=== PATIENT | male | born 1965 ===

== ENCOUNTER 2024-01-15 18:41 | Outpatient (BNV) | payer OTHER, SELFPAY | END 2024-01-16 15:54 | PROVIDERS: Admitting Provider Clinical Nurse Specialist Psychiatric/Mental Health, Adult; Visit Provider Internal Medicine Cardiovascular Disease | DX: I45.81 Long QT syndrome (principal) | CPT/HCPCS: 93010 ==

== ENCOUNTER 2024-01-15 18:41 | Inpatient (IN) | payer OTHER, SELFPAY ==
--- NOTE | 2024-01-15 15:38 | P.EN_ITS ---
Documented by User: Erika Gómez APRN 01/15/24 15:42 Event Note Date of Service: 01/15/24 Event Note: [facility]. Admitted 01/11/24 with SI and alcohol withdrawal. Pt reported a few plans for suicide including hanging and using a razor. During his ER time team noticed a decrease in respiratory status, elevated temp-CAT chest indicated a pneumonia, ?aspiration in RLL. Pt did NOT require O2, labs are stable, he is afebrile and has 3 days of Augmentin remaining. He has no current sx of pneumonia, does report L knee pain, negative on xray and is agreeable to admission for treatment. Time Spent With Patient Time: Total time managing care of this patient today ____ minutes. Documented by User: Matt Mcrae MD 01/15/24 17:13 Event Note Date of Service: 01/15/24
--- OUTSIDE RECORDS SUMMARY | 2024-01-15 18:46 | XMS_ITS | Continuity of Care Document ---
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 Refills 11, Maintenance, 12/05/16 12:06:15, Route to Pharmacy Electronically, [id number], [facility]/pharmacy #[id number] Start Date: 12/05/16 Status: Ordered Indocin SR 75 mg oral capsule, extended release 1 capsule = 75 mg, By Mouth, Daily, PRN for gout pain, # 20 capsule, 0 Refills, Maintenance, CR Capsule Start Date: 01/17/12 Status: Ordered Lovaza oral capsule 2 capsule = 2,000 mg, By Mouth, 2 times a day, # 120 capsule, 11 Refills, Maintenance, 12/05/16 12:06:26, Capsule, 2 capsule By Mouth 2 times a day,x30 days Start Date: 12/05/16 Stop Date: 11/30/17 Status: Ordered Vicodin 500 mg-5 mg oral tablet 1 tablet, By Mouth, Every 4 hours, PRN for pain, # 12 tablet, 0 Refills, Maintenance, Tablet Start Date: 12/21/11 Status: Ordered Vitamin D 21001 iu oral capsule 50,000 International_Units, 1, capsule, By Mouth, Every Marco and , to be used before daily dose, # 9 capsule, Refills 0, Tot. Refills 0, Maintenance, 12/05/16 12:07:09, Route to Pharmacy Electronically, [id number],... Start Date: 12/05/16 Status: Ordered Vitamin D3 5000 intl units oral capsule 1 capsule = 5,000 International_Units, By Mouth, Daily, with food, start in 1 month, # 30 capsule, 11 Refills, Maintenance, 12/05/16 12:08:13, Capsule Start Date: 12/05/16 Stop Date: 11/30/17 Status: Ordered Social History Social History Type Response Smoking Status Current every day noemí aparicio entered on: 12/05/16 Sex Patient Care team information Care Team Personnel Name: Idalmis Lennon Position: [facility] AMB Nurse Member Role: Lifetime Consulting Physician Name: Not on Staff, PCP Position: [facility] Physician (General Medicine) Member Role: PCP Care Team Related Persons Name: ALPHONSO HAYNES Address: [place] [address] Name: NICKY VINCENT Address: [place] [address]
[2024-01-15 19:05] VITALS: BP 132/92; PULSE 103; TEMP 36.3
[2024-01-15] MEDS: Acetaminophen 325 MG TABLET 650 MG PO (21:40)
[2024-01-15] MEDS: Thiamine HCL 100 MG TABLET PO (21:41)
[2024-01-15] MEDS: oxyCODONE HCl Immed Release 5 MG TABLET PO (21:42)
[2024-01-15] MEDS: Amoxicillin/Potassium Clav 875 MG TABLET PO (21:42)
[2024-01-15] MEDS: Pyridoxine HCl (Vitamin B6) 50 MG TABLET PO (21:42)
[2024-01-15] MEDS: traZODone HCL 50 MG TABLET PO (23:02)
[2024-01-15] MEDS: LORazepam 1 MG TABLET PO (23:02)
--- NOTE | 2024-01-16 | ECG_ITS ---
Test Reason : qtc check Blood Pressure : / mmHG Vent. Rate : 092 BPM Atrial Rate : 092 BPM P-R Int : 162 ms QRS Dur : 088 ms QT Int : 362 ms P-R-T Axes : 054 047 042 degrees QTc Int : 447 ms Normal sinus rhythm Normal ECG No previous ECGs available Referred By: Erika Gómez Electronically Signed By:JEANNINE REED MD
[2024-01-16 01:48] VITALS: BMI 26.3
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
[2024-01-16] MEDS: Acetaminophen 325 MG TABLET 650 MG PO ×3 (05:07→18:19)
[2024-01-16] MEDS: hydrOXYzine HCL 25 MG TABLET PO ×3 (05:07→18:18)
[2024-01-16] MEDS: oxyCODONE HCl Immed Release 5 MG TABLET PO ×3 (05:09→20:35)
[2024-01-16] MEDS: Pyridoxine HCl (Vitamin B6) 50 MG TABLET PO (08:42)
[2024-01-16] MEDS: Thiamine HCL 100 MG TABLET PO (08:42)
[2024-01-16] MEDS: LORazepam 1 MG TABLET PO ×4 (08:42→23:43)
[2024-01-16] MEDS: Amoxicillin/Potassium Clav 875 MG TABLET PO ×2 (08:42→20:35)
[2024-01-16 08:49] LABS: Estimated Average Glucose 108 mg/dL; Hemoglobin A1c % 5.4 % (<6.0)
[2024-01-16 09:01] LABS: Cholesterol 146 mg/dL (<200); HDL Cholesterol 25 mg/dL (>40); LDL Cholesterol Calculated 97 mg/dL (<100); Magnesium 2.3 mg/dL (1.6-2.6); Triglycerides 122 mg/dL (<150)
[2024-01-16 09:17] LABS: Free T4 (Free Thyroxine) 1.03 ng/dL (0.71-1.85); Thyroid Stimulating Hormone 1.41 uIU/mL (0.32-4.0)
[2024-01-16 09:58] LABS: Folate 8.9 ng/mL (> or = 4.0); Vitamin B12 324 pg/mL (200-900)
--- NOTE | 2024-01-16 10:58 | MHC.RECOVRN ---
Addendum entered by Rosario Nelson RN 01/16/24 11:07: T/W reviewed pt's chart prior to visit and gave pt's nurse Rayo report following visit. Original Note: AUDIT-C Brief Intervention Pt had positive screen for unhealthy alcohol use on admission, subsequently met with t/w to discuss alcohol use and recovery supports/options. Pt does not voice concern regarding alcohol use but is aware that drinking at unhealthy levels is known to increase risk of alcohol related health problems. Pt reports he drinks as much as I can since about the age of 18. Pt expresses how alcohol use has impacted health, including negative impact on mental health. Discussed risk reduction strategies including drinking below the recommended limit. Provided pt with written resources including information on inpatient and outpatient treatment, RAMAKRISHNA, harm reduction, and recovery coaching. Pt plans to not seek any treatment at this time. Pt provided with t/w contact information if questions or concerns arise. Denies other questions or concerns at this time.
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
[2024-01-16 16:10] VITALS: BP 134/75; PULSE 100; RESP 16; TEMP 36.4; O2SAT 99
[2024-01-16] MEDS: Lidocaine 4 % Patch ADH..PATCH 1 PATCH TRANSDERMA (16:21)
[2024-01-16] MEDS: gemfibroziL 600 MG TABLET PO (18:18)
[2024-01-16] MEDS: Indomethacin 25 MG CAPSULE 50 MG PO ×2 (18:18→20:35)
[2024-01-16] MEDS: traZODone HCL 50 MG TABLET PO ×2 (20:34→23:43)
[2024-01-16] MEDS: OLANZapine 5 MG TABLET PO (20:35)
[2024-01-16] MEDS: cloNIDine HCL 0.1 MG TABLET PO (20:35)
[2024-01-16] MEDS: Magnesium Hydrox/Alum Hydrox 30 ML ORAL.SUSP PO (20:36)
[2024-01-17] MEDS: hydrOXYzine HCL 25 MG TABLET PO ×2 (02:11→12:56)
[2024-01-17 08:00] VITALS: BP 118/69; PULSE 79; RESP 18; TEMP 36.8; O2SAT 97
[2024-01-17] MEDS: Indomethacin 25 MG CAPSULE 50 MG PO ×3 (08:27→19:55)
[2024-01-17] MEDS: OLANZapine 5 MG TABLET PO ×2 (08:28→19:54)
[2024-01-17] MEDS: gemfibroziL 600 MG TABLET PO ×2 (08:28→16:53)
[2024-01-17] MEDS: Folic Acid 1 MG TABLET PO (08:28)
[2024-01-17] MEDS: Multivitamin TABLET 1 TAB PO (08:28)
[2024-01-17] MEDS: Thiamine HCL 100 MG TABLET PO (08:28)
[2024-01-17] MEDS: Pyridoxine HCl (Vitamin B6) 50 MG TABLET PO (08:28)
[2024-01-17] MEDS: Cholecalciferol (Vitamin D3) 10 MCG TABLET PO (08:28)
[2024-01-17] MEDS: Escitalopram Oxalate 5 MG TABLET PO (08:28)
[2024-01-17] MEDS: Amoxicillin/Potassium Clav 875 MG TABLET PO ×2 (08:30→19:54)
[2024-01-17] MEDS: Lidocaine 4 % Patch ADH..PATCH 1 PATCH TRANSDERMA (08:33)
[2024-01-17] MEDS: LORazepam 1 MG TABLET PO ×2 (08:39→13:06)
[2024-01-17] MEDS: Nicotine Polacrilex Lozenge 2 MG LOZENGE BUCCAL ×2 (09:20→19:54)
--- NOTE | 2024-01-17 12:44 | HO.PSYCHPN ---
Subjective Subjective Date of Service: 01/17/24 Reason For Visit: Depression, SI, alcohol withdrawal Interim History: Pt seen, although he would not participate, I want to sleep Review with team, plan of care reviewed. Endorses sx of SI without intent, anger at times Declines intervention options. Medication Compliance: Yes Side effects from medications: No Attending Groups: No Review of Systems Acute medical concerns: No Medical Review of Systems: unchanged Review of Systems Review of Systems Yes Unobtainable due to mental status Mental Status Exam Mental Status Exam Patient Appearance: Fatigued and Disheveled Patient Orientation: Person, Place, Time and Situation Level of Consciousness: Alert Patient Behavior: Talkative, Cooperative, Anxious, Fatigued, Distractible, Isolative and Good Eye Contact Mood Description: Withdrawn, Depressed and Apprehensive Affect Description: Flat Patient Cognition Impaired: No Ability to Follow Directions: Good Speech Pattern: Spontaneous Speech Memory Description: Episodic Impaired Hallucinations: Auditory (recent) and Visual (recent) Delusions: Not Present Perceptual Disturbances: Depersonalization Thought Process: Rumination and Slowed Thinking Thought Content: positive for [place], positive for Circum[place], positive for Perseveration and positive for Suicidal Ideation Depressive Symptoms: Diff. Making Decisions, Feelings of Worthlessness, Hopelessness, Isolating-Friends/Family, Unhappiness, Increased Fatigue, Thoughts of /Suicide, Loss of Energy and Difficulty Concentrating Judgement: Fair Diagnostics Vital Signs (24Hr): Vital Signs - 24 hr 01/16/24 16:10 01/17/24 08:00 Temperature 97.5 F 98.2 F Pulse Rate 100 79 Respiratory Rate 16 18 Blood Pressure 134/75 118/69 Pulse Oximetry 99 97 Oxygen Delivery Method Room Air Room Air BMI result Body Mass Index 26.3 Labs Labs: Laboratory Results - last 48 hr 01/16/24 08:30 Estimat Average Glucose 108 Hemoglobin A1c % 5.4 Magnesium 2.3 Triglycerides 122 Cholesterol 146 LDL Cholesterol, Calc 97 HDL Cholesterol 25 L Vitamin B12 324 Folate 8.9 TSH 1.41 Free T4 1.03 Medications Medications Current Medications Acetaminophen (Acetaminophen 325 Mg Tablet) 650 mg PO Q6H PRN PRN Reason: Headache/Pain Mild Scale (1-3) Last Admin: 01/16/24 18:19 Dose: 650 mg Al Hydroxide/Mg Hydroxide (Magnesium Hydrox/Alum Hydrox 30 Ml Oral.Susp) 30 ml PO Q6H PRN PRN Reason: Heartburn/Nausea Last Admin: 01/16/24 20:36 Dose: 30 ml Amoxicillin/Clavulanate Potassium (Amoxicillin/Potassium Clav 875 Mg Tablet) 875 mg PO BID [facility] Last Admin: 01/17/24 08:30 Dose: 875 mg Clonidine HCl (Clonidine Hcl 0.1 Mg Tablet) 0.1 mg PO BID PRN; Protocol PRN Reason: anxiety Last Admin: 01/16/24 20:35 Dose: 0.1 mg Ergocalciferol (Ergocalciferol (Vitamin D2) 1,250 Mcg Capsule) 1,250 mcg PO Mo@0900 [facility] Escitalopram Oxalate (Escitalopram Oxalate 5 Mg Tablet) 5 mg PO DAILY [facility] Last Admin: 01/17/24 08:28 Dose: 5 mg Folic Acid (Folic Acid 1 Mg Tablet) 1 mg PO DAILY [facility] Last Admin: 01/17/24 08:28 Dose: 1 mg Gemfibrozil (Gemfibrozil 600 Mg Tablet) 600 mg PO BIDAC [facility] Last Admin: 01/17/24 08:28 Dose: 600 mg Hydroxyzine HCl (Hydroxyzine Hcl 25 Mg Tablet) 25 mg PO Q6H PRN PRN Reason: Anxiety Last Admin: 01/17/24 02:11 Dose: 25 mg Indomethacin (Indomethacin 25 Mg Capsule) 50 mg PO TID [facility] Stop: 01/23/24 14:59 Last Admin: 01/17/24 08:27 Dose: 50 mg Lidocaine (Lidocaine 4 % Patch Adh..Patch) 1 patch TRANSDERMA DAILY [facility]; Protocol Last Admin: 01/17/24 08:33 Dose: 1 patch Lorazepam (Lorazepam 1 Mg Tablet) 1 mg PO Q4H PRN PRN Reason: ciwa 7-12 Last Admin: 01/17/24 08:39 Dose: 1 mg Lorazepam (Lorazepam 1 Mg Tablet) 2 mg PO Q4H PRN PRN Reason: ciwa 13-17 Lorazepam (Lorazepam 1 Mg Tablet) 3 mg PO Q4H PRN PRN Reason: ciwa>17, call Magnesium Hydroxide (Milk Of Magnesia 30 Ml Oral.Susp) 30 ml PO DAILY PRN PRN Reason: Constipation Multivitamins/Vitamin C (Multivitamin Tablet) 1 tab PO DAILY [facility] Last Admin: 01/17/24 08:28 Dose: 1 tab Nicotine Polacrilex (Nicotine Polacrilex Lozenge 2 Mg Lozenge) 2 mg BUCCAL Q2H PRN PRN Reason: Nicotine Cravings Last Admin: 01/17/24 09:20 Dose: 2 mg Non-Formulary Medication ([place]-3 Lovaza) 2,000 mg PO BID [facility] Olanzapine (Olanzapine 5 Mg Tablet) 5 mg PO BID [facility] Last Admin: 01/17/24 08:28 Dose: 5 mg Oxycodone HCl (Oxycodone Hcl Immed Release 5 Mg Tablet) 5 mg PO Q8H PRN PRN Reason: moderate/severe pain Last Admin: 01/16/24 20:35 Dose: 5 mg Pyridoxine HCl (Pyridoxine Hcl (Vitamin B6) 50 Mg Tablet) 50 mg PO DAILY [facility] Last Admin: 01/17/24 08:28 Dose: 50 mg Thiamine HCl (Thiamine Hcl 100 Mg Tablet) 100 mg PO DAILY [facility] Last Admin: 01/17/24 08:28 Dose: 100 mg Trazodone HCl (Trazodone Hcl 50 Mg Tablet) 50 mg PO BEDTIME MRX1 PRN PRN Reason: Insomnia Last Admin: 01/16/24 23:43 Dose: 50 mg Vitamin D (Cholecalciferol (Vitamin D3) 10 Mcg Tablet) 10 mcg PO DAILY [facility] Last Admin: 01/17/24 08:28 Dose: 10 mcg Allergies Allergies Allergy/AdvReac Type Severity Reaction Status Date / Time No Known Allergies Allergy Verified 01/15/24 15:36 Assessment & Plan Assessment & Plan (1) Mood disorder: Status: Acute Code(s): F39 - Unspecified mood [affective] disorder (2) PTSD (post-traumatic stress disorder): Status: Acute Code(s): F43.10 - Post-traumatic stress disorder, unspecified (3) Alcohol use disorder: Status: Acute Code(s): F10.90 - Alcohol use, unspecified, uncomplicated Plan 58 yo male, history of PTSD, mood disorder, alcohol use disorder, admitted in transfer from [facility] after a medical detox and admit for a possible aspiration pneumonia on 01/09/24. Plan: Continue medical regime Lexapro 5 mg a.m. Olanzapine 5 mg bid MVI, Folic Acid, Thiamine Lidocaine patch to knee Uric acid level 01/16. Addiction consult-?Vivitrol 01/16- Continue plan of care. Reason for continued inpatient stay Substantial Risk for: rapid decompensation Time Spent With Patient Time: Total time managing care of this patient today ____ minutes.
[2024-01-17] MEDS: oxyCODONE HCl Immed Release 5 MG TABLET PO (12:56)
[2024-01-17 16:59] VITALS: BP 113/55; PULSE 70; RESP 18; TEMP 36.3; O2SAT 99
[2024-01-17 19:30] LABS: Uric Acid 6.7 mg/dL (3.4-7.0)
[2024-01-17] MEDS: traZODone HCL 50 MG TABLET PO (19:54)
[2024-01-17] MEDS: cloNIDine HCL 0.1 MG TABLET PO (19:54)
[2024-01-17 20:06] VITALS: BP 120/70; PULSE 80
[2024-01-18] MEDS: hydrOXYzine HCL 25 MG TABLET PO ×3 (00:42→20:20)
[2024-01-18] MEDS: oxyCODONE HCl Immed Release 5 MG TABLET PO ×2 (00:42→20:20)
[2024-01-18] MEDS: traZODone HCL 50 MG TABLET PO ×3 (00:43→21:24)
[2024-01-18] MEDS: Nicotine Polacrilex Lozenge 2 MG LOZENGE BUCCAL ×4 (00:44→20:20)
--- NOTE | 2024-01-18 05:54 | P.PNPSI_ITS ---
Subjective Subjective Date of Service: 01/18/24 Reason For Visit: Depression, SI, alcohol withdrawal Subjective Notes: Conditional Voluntary Interim History: Pt seen, discussed with team who report he expressed an increase in anger. Plan of care reviewed. Pt in bed, isolative, irritable, decrease in communication. Medication Compliance: Yes Side effects from medications: No Attending Groups: No Review of Systems Acute medical concerns: No Medical Review of Systems: unchanged Review of Systems Review of Systems Yes Unobtainable due to mental status Mental Status Exam Mental Status Exam Patient Appearance: Fatigued and Disheveled Patient Orientation: Person, Place, Time and Situation Level of Consciousness: Alert Patient Behavior: Talkative, Cooperative, Anxious, Fatigued, Distractible, Isolative and Good Eye Contact Mood Description: Withdrawn, Depressed and Apprehensive Affect Description: Flat Patient Cognition Impaired: No Ability to Follow Directions: Good Speech Pattern: Spontaneous Speech Memory Description: Episodic Impaired Hallucinations: Auditory (recent) and Visual (recent) Delusions: Not Present Perceptual Disturbances: Depersonalization Thought Process: Rumination and Slowed Thinking Thought Content: positive for [place], positive for Circumstantial, positive for Perseveration and positive for Suicidal Ideation Depressive Symptoms: Diff. Making Decisions, Feelings of Worthlessness, Hope lessness, Isolating-Friends/Family, Unhappiness, Increased Fatigue, Thoughts of /Suicide, Loss of Energy and Difficulty Concentrating Judgement: Fair Diagnostics Vital Signs (24Hr): Vital Signs - 24 hr 01/17/24 08:00 01/17/24 16:59 01/17/24 20:06 Temperature 98.2 F 97.4 F Pulse Rate 79 70 80 Respiratory Rate 18 18 Blood Pressure 118/69 113/55 L 120/70 Pulse Oximetry 97 99 Oxygen Delivery Method Room Air Room Air BMI result Body Mass Index 26.3 Labs Labs: Laboratory Results - last 48 hr 01/16/24 01/17/24 08:30 19:06 Estimat Average Glucose 108 Hemoglobin A1c % 5.4 Uric Acid 6.7 Magnesium 2.3 Triglycerides 122 Cholesterol 146 LDL Cholesterol, Calc 97 HDL Cholesterol 25 L Vitamin B12 324 Folate 8.9 TSH 1.41 Free T4 1.03 Medications Medications Current Medications Acetaminophen (Acetaminophen 325 Mg Tablet) 650 mg PO Q6H PRN PRN Reason: Headache/Pain Mild Scale (1-3) Last Admin: 01/16/24 18:19 Dose: 650 mg Al Hydroxide/Mg Hydroxide (Magnesium Hydrox/Alum Hydrox 30 Ml Oral.Susp) 30 ml PO Q6H PRN PRN Reason: Heartburn/Nausea Last Admin: 01/16/24 20:36 Dose: 30 ml Amoxicillin/Clavulanate Potassium (Amoxicillin/Potassium Clav 875 Mg Tablet) 875 mg PO BID [facility] Last Admin: 01/17/24 19:54 Dose: 875 mg Clonidine HCl (Clonidine Hcl 0.1 Mg Tablet) 0.1 mg PO BID PRN; Protocol PRN Reason: anxiety Last Admin: 01/17/24 19:54 Dose: 0.1 mg Ergocalciferol (Ergocalciferol (Vitamin D2) 1,250 Mcg Capsule) 1,250 mcg PO Mo@0900 [facility] Escitalopram Oxalate (Escitalopram Oxalate 5 Mg Tablet) 5 mg PO DAILY [facility] Last Admin: 01/17/24 08:28 Dose: 5 mg Folic Acid (Folic Acid 1 Mg Tablet) 1 mg PO DAILY [facility] Last Admin: 01/17/24 08:28 Dose: 1 mg Gemfibrozil (Gemfibrozil 600 Mg Tablet) 600 mg PO BIDAC [facility] Last Admin: 01/17/24 16:53 Dose: 600 mg Hydroxyzine HCl (Hydroxyzine Hcl 25 Mg Tablet) 25 mg PO Q6H PRN PRN Reason: Anxiety Last Admin: 01/18/24 00:42 Dose: 25 mg Indomethacin (Indomethacin 25 Mg Capsule) 50 mg PO TID [facility] Stop: 01/23/24 14:59 Last Admin: 01/17/24 19:55 Dose: 50 mg Lidocaine (Lidocaine 4 % Patch Adh..Patch) 1 patch TRANSDERMA DAILY [facility]; Protocol Last Admin: 01/17/24 08:33 Dose: 1 patch Lorazepam (Lorazepam 1 Mg Tablet) 1 mg PO Q4H PRN PRN Reason: ciwa 7-12 Last Admin: 01/17/24 13:06 Dose: 1 mg Lorazepam (Lorazepam 1 Mg Tablet) 2 mg PO Q4H PRN PRN Reason: ciwa 13-17 Lorazepam (Lorazepam 1 Mg Tablet) 3 mg PO Q4H PRN PRN Reason: ciwa>17, call Magnesium Hydroxide (Milk Of Magnesia 30 Ml Oral.Susp) 30 ml PO DAILY PRN PRN Reason: Constipation Multivitamins/Vitamin C (Multivitamin Tablet) 1 tab PO DAILY [facility] Last Admin: 01/17/24 08:28 Dose: 1 tab Nicotine Polacrilex (Nicotine Polacrilex Lozenge 2 Mg Lozenge) 2 mg BUCCAL Q2H PRN PRN Reason: Nicotine Cravings Last Admin: 01/18/24 00:44 Dose: 2 mg Non-Formulary Medication ([place]-3 Lovaza) 2,000 mg PO BID [facility] Olanzapine (Olanzapine 5 Mg Tablet) 5 mg PO BID [facility] Last Admin: 01/17/24 19:54 Dose: 5 mg Oxycodone HCl (Oxycodone Hcl Immed Release 5 Mg Tablet) 5 mg PO Q8H PRN PRN Reason: moderate/severe pain Last Admin: 01/18/24 00:42 Dose: 5 mg Pyridoxine HCl (Pyridoxine Hcl (Vitamin B6) 50 Mg Tablet) 50 mg PO DAILY [facility] Last Admin: 01/17/24 08:28 Dose: 50 mg Thiamine HCl (Thiamine Hcl 100 Mg Tablet) 100 mg PO DAILY [facility] Last Admin: 01/17/24 08:28 Dose: 100 mg Trazodone HCl (Trazodone Hcl 50 Mg Tablet) 50 mg PO BEDTIME MRX1 PRN PRN Reason: Insomnia Last Admin: 01/18/24 00:43 Dose: 50 mg Vitamin D (Cholecalciferol (Vitamin D3) 10 Mcg Tablet) 10 mcg PO DAILY [facility] Last Admin: 01/17/24 08:28 Dose: 10 mcg Allergies Allergies Allergy/AdvReac Type Severity Reaction Status Date / Time No Known Allergies Allergy Verified 01/15/24 15:36 Assessment & Plan Assessment & Plan (1) Mood disorder: Status: Acute Code(s): F39 - Unspecified mood [affective] disorder (2) PTSD (post-traumatic stress disorder): Status: Acute Code(s): F43.10 - Post-traumatic stress disorder, unspecified (3) Alcohol use disorder: Status: Acute Code(s): F10.90 - Alcohol use, unspecified, uncomplicated Plan 58 yo male, history of PTSD, mood disorder, alcohol use disorder, admitted in transfer from [facility] after a medical detox and admit for a possible aspiration pneumonia on 01/09/24. Plan: Continue medical regime Lexapro 5 mg a.m. Olanzapine 5 mg bid MVI, Folic Acid, Thiamine Lidocaine patch to knee Uric acid level 01/16. Addiction consult-?Vivitrol 01/17- Continue tx. ?increase of Olanzapine 01/18. Reason for continued inpatient stay Substantial Risk for: rapid decompensation Time Spent With Patient Time: Total time managing care of this patient today ____ minutes.
[2024-01-18] MEDS: cloNIDine HCL 0.1 MG TABLET PO (06:57)
[2024-01-18 07:46] VITALS: BP 83/55; PULSE 82; RESP 18; TEMP 36.5; O2SAT 96
[2024-01-18] MEDS: Escitalopram Oxalate 5 MG TABLET PO (08:07)
[2024-01-18] MEDS: Multivitamin TABLET 1 TAB PO (08:07)
[2024-01-18] MEDS: Cholecalciferol (Vitamin D3) 10 MCG TABLET PO (08:07)
[2024-01-18] MEDS: Folic Acid 1 MG TABLET PO (08:07)
[2024-01-18] MEDS: OLANZapine 5 MG TABLET PO ×2 (08:07→20:20)
[2024-01-18] MEDS: Amoxicillin/Potassium Clav 875 MG TABLET PO ×2 (08:07→20:20)
[2024-01-18] MEDS: gemfibroziL 600 MG TABLET PO ×2 (08:07→16:07)
[2024-01-18] MEDS: Pyridoxine HCl (Vitamin B6) 50 MG TABLET PO (08:07)
[2024-01-18] MEDS: Thiamine HCL 100 MG TABLET PO (08:07)
[2024-01-18] MEDS: Indomethacin 25 MG CAPSULE 50 MG PO ×3 (08:07→20:20)
[2024-01-18] MEDS: Lidocaine 4 % Patch ADH..PATCH 1 PATCH TRANSDERMA (08:09)
[2024-01-18] MEDS: LORazepam 1 MG TABLET PO ×2 (08:41→16:07)
[2024-01-18 16:49] VITALS: BP 122/60; PULSE 87; RESP 18; TEMP 36.6; O2SAT 97
[2024-01-19 08:20] VITALS: BP 98/55; PULSE 74; RESP 18; TEMP 36.9; O2SAT 97
[2024-01-19] MEDS: gemfibroziL 600 MG TABLET PO ×2 (08:39→17:14)
[2024-01-19] MEDS: Amoxicillin/Potassium Clav 875 MG TABLET PO ×2 (08:39→20:08)
[2024-01-19] MEDS: Indomethacin 25 MG CAPSULE 50 MG PO ×3 (08:39→20:06)
[2024-01-19] MEDS: OLANZapine 5 MG TABLET PO (08:39)
[2024-01-19] MEDS: Folic Acid 1 MG TABLET PO (08:39)
[2024-01-19] MEDS: Ergocalciferol (Vitamin D2) 1,250 MCG CAPSULE 1250 MCG PO (08:39)
[2024-01-19] MEDS: Pyridoxine HCl (Vitamin B6) 50 MG TABLET PO (08:40)
[2024-01-19] MEDS: Escitalopram Oxalate 5 MG TABLET PO (08:40)
[2024-01-19] MEDS: Cholecalciferol (Vitamin D3) 10 MCG TABLET PO (08:40)
[2024-01-19] MEDS: Multivitamin TABLET 1 TAB PO (08:40)
[2024-01-19] MEDS: Thiamine HCL 100 MG TABLET PO (08:40)
[2024-01-19] MEDS: Acetaminophen 325 MG TABLET 650 MG PO ×2 (08:44→17:13)
[2024-01-19] MEDS: LORazepam 1 MG TABLET PO ×4 (08:44→22:18)
[2024-01-19] MEDS: Nicotine Polacrilex Lozenge 2 MG LOZENGE BUCCAL ×2 (11:01→18:16)
[2024-01-19] MEDS: hydrOXYzine HCL 25 MG TABLET PO ×2 (11:01→20:06)
[2024-01-19] MEDS: oxyCODONE HCl Immed Release 5 MG TABLET PO (13:06)
--- NOTE | 2024-01-19 13:32 | PC.NURSE ---
pt signed a 3day notice 01/18/24, up on 01/21/24
--- NOTE | 2024-01-19 14:28 | HO.PSYCHPN ---
Subjective Subjective Date of Service: 01/19/24 Reason For Visit: Depression, SI, alcohol withdrawal Subjective Notes: Conditional Voluntary Healthcare Proxy: No Guardianship: No Medical Problems Affecting Mental Status: No Interim History: Some improvement with ongoing hopelessness that he will never be able to stop alcohol. Discussed mood lability, medication options, rehab options. He is willing to trial medications, less willing for CSS programs and longer term rehab options but will consider them Medication Compliance: Yes Side effects from medications: No Attending Groups: No Review of Systems Acute medical concerns: No Medical Review of Systems: unchanged Review of Systems Review of Systems Yes all other systems are reviewed and are negative Mental Status Exam Mental Status Exam Patient Appearance: Fatigued Patient Orientation: Person, Place, Time and Situation Level of Consciousness: Alert Patient Behavior: Talkative and Good Eye Contact Mood Description: Depressed and Apprehensive Affect Description: Flat Patient Cognition Impaired: No Ability to Follow Directions: Good Speech Pattern: Spontaneous Speech Memory Description: Intact Hallucinations: None Delusions: Not Present Thought Process: Distracted and Rumination Thought Content: positive for [place] Depressive Symptoms: Hopelessness, Unhappiness and Low Self Esteem Judgement: Fair Diagnostics Vital Signs (24Hr): Vital Signs - 24 hr 01/18/24 16:49 01/19/24 08:20 Temperature 98 F 98.4 F Pulse Rate 87 74 Respiratory Rate 18 18 Blood Pressure 122/60 98/55 L Pulse Oximetry 97 97 Oxygen Delivery Method Room Air Room Air BMI result Body Mass Index 26.3 Labs Labs: Laboratory Results - last 48 hr 01/17/24 19:06 Uric Acid 6.7 Medications Medications Current Medications Acetaminophen (Acetaminophen 325 Mg Tablet) 650 mg PO Q6H PRN PRN Reason: Headache/Pain Mild Scale (1-3) Last Admin: 01/19/24 08:44 Dose: 650 mg Al Hydroxide/Mg Hydroxide (Magnesium Hydrox/Alum Hydrox 30 Ml Oral.Susp) 30 ml PO Q6H PRN PRN Reason: Heartburn/Nausea Last Admin: 01/16/24 20:36 Dose: 30 ml Amoxicillin/Clavulanate Potassium (Amoxicillin/Potassium Clav 875 Mg Tablet) 875 mg PO BID DAIN Last Admin: 01/19/24 08:39 Dose: 875 mg Clonidine HCl (Clonidine Hcl 0.1 Mg Tablet) 0.1 mg PO BID PRN; Protocol PRN Reason: anxiety Last Admin: 01/18/24 06:57 Dose: 0.1 mg Ergocalciferol (Ergocalciferol (Vitamin D2) 1,250 Mcg Capsule) 1,250 mcg PO Mo@0900 [facility] Last Admin: 01/19/24 08:39 Dose: 1,250 mcg Escitalopram Oxalate (Escitalopram Oxalate 5 Mg Tablet) 5 mg PO DAILY [facility] Last Admin: 01/19/24 08:40 Dose: 5 mg Folic Acid (Folic Acid 1 Mg Tablet) 1 mg PO DAILY [facility] Last Admin: 01/19/24 08:39 Dose: 1 mg Gemfibrozil (Gemfibrozil 600 Mg Tablet) 600 mg PO BIDAC [facility] Last Admin: 01/19/24 08:39 Dose: 600 mg Hydroxyzine HCl (Hydroxyzine Hcl 25 Mg Tablet) 25 mg PO Q6H PRN PRN Reason: Anxiety Last Admin: 01/19/24 11:01 Dose: 25 mg Indomethacin (Indomethacin 25 Mg Capsule) 50 mg PO TID [facility] Stop: 01/23/24 14:59 Last Admin: 01/19/24 08:39 Dose: 50 mg Lamotrigine (Lamotrigine 25 Mg Tablet) 25 mg PO BEDTIME [facility] Lidocaine (Lidocaine 4 % Patch Adh..Patch) 1 patch TRANSDERMA DAILY [facility]; Protocol Last Admin: 01/19/24 09:22 Dose: Not Given Lorazepam (Lorazepam 1 Mg Tablet) 1 mg PO Q4H PRN PRN Reason: ciwa 7-12 Last Admin: 01/19/24 13:06 Dose: 1 mg Lorazepam (Lorazepam 1 Mg Tablet) 2 mg PO Q4H PRN PRN Reason: ciwa 13-17 Lorazepam (Lorazepam 1 Mg Tablet) 3 mg PO Q4H PRN PRN Reason: ciwa>17, call Magnesium Hydroxide (Milk Of Magnesia 30 Ml Oral.Susp) 30 ml PO DAILY PRN PRN Reason: Constipation Multivitamins/Vitamin C (Multivitamin Tablet) 1 tab PO DAILY [facility] Last Admin: 01/19/24 08:40 Dose: 1 tab Nicotine Polacrilex (Nicotine Polacrilex Lozenge 2 Mg Lozenge) 2 mg BUCCAL Q2H PRN PRN Reason: Nicotine Cravings Last Admin: 01/19/24 11:01 Dose: 2 mg Olanzapine (Olanzapine 10 Mg Tablet) 10 mg PO BID [facility] Oxycodone HCl (Oxycodone Hcl Immed Release 5 Mg Tablet) 5 mg PO Q8H PRN PRN Reason: moderate/severe pain Last Admin: 01/19/24 13:06 Dose: 5 mg Pyridoxine HCl (Pyridoxine Hcl (Vitamin B6) 50 Mg Tablet) 50 mg PO DAILY [facility] Last Admin: 01/19/24 08:40 Dose: 50 mg Thiamine HCl (Thiamine Hcl 100 Mg Tablet) 100 mg PO DAILY [facility] Last Admin: 01/19/24 08:40 Dose: 100 mg Trazodone HCl (Trazodone Hcl 50 Mg Tablet) 50 mg PO BEDTIME MRX1 PRN PRN Reason: Insomnia Last Admin: 01/18/24 21:24 Dose: 50 mg Vitamin D (Cholecalciferol (Vitamin D3) 10 Mcg Tablet) 10 mcg PO DAILY [facility] Last Admin: 01/19/24 08:40 Dose: 10 mcg Allergies Allergies Allergy/AdvReac Type Severity Reaction Status Date / Time No Known Allergies Allergy Verified 01/15/24 15:36 Assessment & Plan Assessment & Plan (1) Mood disorder: Status: Acute Code(s): F39 - Unspecified mood [affective] disorder (2) PTSD (post-traumatic stress disorder): Status: Acute Code(s): F43.10 - Post-traumatic stress disorder, unspecified (3) Alcohol use disorder: Status: Acute Code(s): F10.90 - Alcohol use, unspecified, uncomplicated Plan 58 yo male, history of PTSD, mood disorder, alcohol use disorder, admitted in transfer from [facility] after a medical detox and admit for a possible aspiration pneumonia on 01/09/24. Plan: Continue medical regime Lexapro 5 mg a.m. Olanzapine 5 mg bid MVI, Folic Acid, Thiamine Lidocaine patch to knee Uric acid level 01/16. Addiction consult-?Vivitrol 01/17- Continue tx. ?increase of Olanzapine 01/18. 01/18- Increase Olanzapine to 10 mg bid Lamictal 25 mg HS Patient educated on: medication risk/benefits and therapeutic strategies Informed Consent: understands and further education needed Reason for continued inpatient stay Substantial Risk for: rapid decompensation Time Spent With Patient Time: Total time managing care of this patient today ____ minutes.
[2024-01-19] MEDS: Magnesium Hydrox/Alum Hydrox 30 ML ORAL.SUSP PO (14:47)
--- NOTE | 2024-01-19 15:06 | MHC.RECOVRN ---
Met with pt on M5 to follow up after pt expressed interest in RAMAKRISHNA. Pt reports alcohol use, at least a 6 pack and a fifth of vodka daily x years. Pt reports longest period in recovery began on Sep 27, 2023 and lasted 3 months. Pt states I didn't have any money and then I found a $20 bill in my pocket. Pt reports hx withdrawal seizures as well as hospitalization for pancreatitis. Pt denies treatment for AUD in the past, states I never wanted to recover. Pt reports he is interested in decreasing alcohol use at this time. Educated pt on RAMAKRISHNA, pt interested in naltrexone. Pt currently receiving oxycodone for gout flare, educated pt on inability to initiate naltrexone while taking opioids. Pt reports last dose of oxycodone will be this evening and would like to start naltrexone when able. Pt denies questions or concerns for t/w. Discussed with Nica Holley APRN.
[2024-01-19] MEDS: OLANZapine 10 MG TABLET PO (20:06)
[2024-01-19] MEDS: lamoTRIgine 25 MG TABLET PO (20:08)
[2024-01-19 20:20] VITALS: BP 169/86; PULSE 103; RESP 17; TEMP 36.4; O2SAT 96
[2024-01-20 08:00] VITALS: RESP 18
[2024-01-20] MEDS: Thiamine HCL 100 MG TABLET PO (08:11)
[2024-01-20] MEDS: Amoxicillin/Potassium Clav 875 MG TABLET PO ×2 (08:11→21:08)
[2024-01-20] MEDS: Escitalopram Oxalate 5 MG TABLET PO (08:11)
[2024-01-20] MEDS: Indomethacin 25 MG CAPSULE 50 MG PO ×3 (08:11→21:07)
[2024-01-20] MEDS: Pyridoxine HCl (Vitamin B6) 50 MG TABLET PO (08:12)
[2024-01-20] MEDS: OLANZapine 10 MG TABLET PO ×2 (08:12→21:08)
[2024-01-20] MEDS: Cholecalciferol (Vitamin D3) 10 MCG TABLET PO (08:12)
[2024-01-20] MEDS: Lidocaine 4 % Patch ADH..PATCH 1 PATCH TRANSDERMA (08:12)
[2024-01-20] MEDS: Multivitamin TABLET 1 TAB PO (08:12)
[2024-01-20] MEDS: gemfibroziL 600 MG TABLET PO (08:12)
[2024-01-20] MEDS: Folic Acid 1 MG TABLET PO (08:12)
[2024-01-20] MEDS: LORazepam 1 MG TABLET PO ×2 (08:41→21:08)
[2024-01-20] MEDS: LORazepam 0.5 MG TABLET PO (14:30)
[2024-01-20] MEDS: Nicotine Polacrilex Lozenge 2 MG LOZENGE BUCCAL ×3 (14:51→21:10)
--- NOTE | 2024-01-20 18:13 | HO.PSYCHPN ---
Subjective Subjective Date of Service: 01/20/24 Reason For Visit: Depression, SI, alcohol withdrawal Subjective Notes: Conditional Voluntary Healthcare Proxy: No Guardianship: No Medical Problems Affecting Mental Status: No Interim History: Discussion with team, Lorazepam tapering to begin. 2.5 qd to taper by 0.5 q 2D. Pt reports anxiety, ongoing HI-states he does not know to whom and has no intent, then laughs and says, no. SI- always there you know. 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 Team continue to offer options, which he is listening to, including medicine. Some VH by report- insects on the floor. Discussed possible hallucinosis. Ativan helps this, Medication Compliance: Yes Side effects from medications: No Attending Groups: No Review of Systems Acute medical concerns: No Medical Review of Systems: unchanged Review of Systems Review of Systems Yes all other systems are reviewed and are negative Mental Status Exam Mental Status Exam Patient Appearance: Fatigued Patient Orientation: Person, Place, Time and Situation Level of Consciousness: Alert Patient Behavior: Talkative and Good Eye Contact Mood Description: Depressed and Apprehensive Affect Description: Flat Patient Cognition Impaired: No Ability to Follow Directions: Good Speech Pattern: Spontaneous Speech Memory Description: Intact Hallucinations: None Delusions: Not Present Thought Process: Distracted and Rumination Thought Content: positive for Perseveration Depressive Symptoms: Hopelessness, Unhappiness and Low Self Esteem Judgement: Fair Diagnostics Vital Signs (24Hr): Vital Signs - 24 hr 01/19/24 20:20 01/20/24 08:00 Temperature 97.6 F Pulse Rate 103 H Respiratory Rate 17 18 Blood Pressure 169/86 H Pulse Oximetry 96 Oxygen Delivery Method Room Air BMI result Body Mass Index 26.3 Medications Medications Current Medications Acetaminophen (Acetaminophen 325 Mg Tablet) 650 mg PO Q6H PRN PRN Reason: Headache/Pain Mild Scale (1-3) Last Admin: 01/19/24 17:13 Dose: 650 mg Al Hydroxide/Mg Hydroxide (Magnesium Hydrox/Alum Hydrox 30 Ml Oral.Susp) 30 ml PO Q6H PRN PRN Reason: Heartburn/Nausea Last Admin: 01/19/24 14:47 Dose: 30 ml Amoxicillin/Clavulanate Potassium (Amoxicillin/Potassium Clav 875 Mg Tablet) 875 mg PO BID DAIN Last Admin: 01/20/24 08:11 Dose: 875 mg Clonidine HCl (Clonidine Hcl 0.1 Mg Tablet) 0.1 mg PO BID PRN; Protocol PRN Reason: anxiety Last Admin: 01/18/24 06:57 Dose: 0.1 mg Ergocalciferol (Ergocalciferol (Vitamin D2) 1,250 Mcg Capsule) 1,250 mcg PO Mo@0900 DAIN Last Admin: 01/19/24 08:39 Dose: 1,250 mcg Escitalopram Oxalate (Escitalopram Oxalate 5 Mg Tablet) 5 mg PO DAILY [facility] Last Admin: 01/20/24 08:11 Dose: 5 mg Folic Acid (Folic Acid 1 Mg Tablet) 1 mg PO DAILY [facility] Last Admin: 01/20/24 08:12 Dose: 1 mg Gemfibrozil (Gemfibrozil 600 Mg Tablet) 600 mg PO BIDAC [facility] Last Admin: 01/20/24 08:12 Dose: 600 mg Hydroxyzine HCl (Hydroxyzine Hcl 25 Mg Tablet) 25 mg PO Q6H PRN PRN Reason: Anxiety Last Admin: 01/19/24 20:06 Dose: 25 mg Indomethacin (Indomethacin 25 Mg Capsule) 50 mg PO TID [facility] Stop: 01/23/24 14:59 Last Admin: 01/20/24 14:30 Dose: 50 mg Lamotrigine (Lamotrigine 25 Mg Tablet) 25 mg PO BEDTIME [facility] Last Admin: 01/19/24 20:08 Dose: 25 mg Lidocaine (Lidocaine 4 % Patch Adh..Patch) 1 patch TRANSDERMA DAILY [facility]; Protocol Last Admin: 01/20/24 08:12 Dose: 1 patch Lorazepam (Lorazepam 1 Mg Tablet) 1 mg PO BID [facility] Stop: 01/22/24 07:00 Lorazepam (Lorazepam 0.5 Mg Tablet) 0.5 mg PO 1300 DAIN Stop: 01/22/24 07:00 Last Admin: 01/20/24 14:30 Dose: 0.5 mg Lorazepam (Lorazepam 1 Mg Tablet) 1 mg PO BID [facility] Stop: 01/24/24 07:00 Lorazepam (Lorazepam 0.5 Mg Tablet) 0.5 mg PO DAILY [facility] Stop: 01/26/24 07:00 Lorazepam (Lorazepam 1 Mg Tablet) 1 mg PO BEDTIME DAIN Stop: 01/26/24 07:00 Lorazepam (Lorazepam 0.5 Mg Tablet) 0.5 mg PO BID [facility] Stop: 01/28/24 07:00 Lorazepam (Lorazepam 0.5 Mg Tablet) 0.5 mg PO BEDTIME DAIN Stop: 01/30/24 07:00 Magnesium Hydroxide (Milk Of Magnesia 30 Ml Oral.Susp) 30 ml PO DAILY PRN PRN Reason: Constipation Multivitamins/Vitamin C (Multivitamin Tablet) 1 tab PO DAILY [facility] Last Admin: 01/20/24 08:12 Dose: 1 tab Nicotine Polacrilex (Nicotine Polacrilex Lozenge 2 Mg Lozenge) 2 mg BUCCAL Q2H PRN PRN Reason: Nicotine Cravings Last Admin: 01/20/24 14:51 Dose: 2 mg Olanzapine (Olanzapine 10 Mg Tablet) 10 mg PO BID [facility] Last Admin: 01/20/24 08:12 Dose: 10 mg Oxycodone HCl (Oxycodone Hcl Immed Release 5 Mg Tablet) 5 mg PO Q8H PRN PRN Reason: moderate/severe pain Last Admin: 01/19/24 13:06 Dose: 5 mg Pyridoxine HCl (Pyridoxine Hcl (Vitamin B6) 50 Mg Tablet) 50 mg PO DAILY [facility] Last Admin: 01/20/24 08:12 Dose: 50 mg Thiamine HCl (Thiamine Hcl 100 Mg Tablet) 100 mg PO DAILY [facility] Last Admin: 01/20/24 08:11 Dose: 100 mg Trazodone HCl (Trazodone Hcl 50 Mg Tablet) 50 mg PO BEDTIME MRX1 PRN PRN Reason: Insomnia Last Admin: 01/18/24 21:24 Dose: 50 mg Vitamin D (Cholecalciferol (Vitamin D3) 10 Mcg Tablet) 10 mcg PO DAILY [facility] Last Admin: 01/20/24 08:12 Dose: 10 mcg Allergies Allergies Allergy/AdvReac Type Severity Reaction Status Date / Time No Known Allergies Allergy Verified 01/15/24 15:36 Assessment & Plan Assessment & Plan (1) Mood disorder: Status: Acute Code(s): F39 - Unspecified mood [affective] disorder (2) PTSD (post-traumatic stress disorder): Status: Acute Code(s): F43.10 - Post-traumatic stress disorder, unspecified (3) Alcohol use disorder: Status: Acute Code(s): F10.90 - Alcohol use, unspecified, uncomplicated Plan 58 yo male, history of PTSD, mood disorder, alcohol use disorder, admitted in transfer from [facility] after a medical detox and admit for a possible aspiration pneumonia on 01/09/24. Plan: Continue medical regime Lexapro 5 mg a.m. Olanzapine 5 mg bid MVI, Folic Acid, Thiamine Lidocaine patch to knee Uric acid level 01/16. Addiction consult-?Vivitrol 01/17- Continue tx. ?increase of Olanzapine 01/18. 01/18- Increase Olanzapine to 10 mg bid Lamictal 25 mg HS 01/19 Lorazepam tapering 2.5 mg daily, to decrease by 0.5 q2D Patient educated on: medication risk/benefits and therapeutic strategies Informed Consent: further education needed Reason for continued inpatient stay Substantial Risk for: rapid decompensation and med/psych decompensation Time Spent With Patient Time: Total time managing care of this patient today ____ minutes.
[2024-01-20 20:38] VITALS: BP 117/55; PULSE 97; RESP 17; TEMP 36.6; O2SAT 99
[2024-01-20] MEDS: oxyCODONE HCl Immed Release 5 MG TABLET PO (21:07)
[2024-01-20] MEDS: lamoTRIgine 25 MG TABLET PO (21:08)
[2024-01-20] MEDS: traZODone HCL 50 MG TABLET PO (21:08)
[2024-01-21 08:00] VITALS: BP 141/71; PULSE 75; RESP 18; TEMP 36.3; O2SAT 97
[2024-01-21] MEDS: Lidocaine 4 % Patch ADH..PATCH 1 PATCH TRANSDERMA (08:17)
[2024-01-21] MEDS: Pyridoxine HCl (Vitamin B6) 50 MG TABLET PO (08:18)
[2024-01-21] MEDS: OLANZapine 10 MG TABLET PO ×2 (08:18→20:04)
[2024-01-21] MEDS: Multivitamin TABLET 1 TAB PO (08:18)
[2024-01-21] MEDS: Cholecalciferol (Vitamin D3) 10 MCG TABLET PO (08:18)
[2024-01-21] MEDS: Amoxicillin/Potassium Clav 875 MG TABLET PO ×2 (08:18→20:04)
[2024-01-21] MEDS: Escitalopram Oxalate 5 MG TABLET PO (08:18)
[2024-01-21] MEDS: Thiamine HCL 100 MG TABLET PO (08:18)
[2024-01-21] MEDS: Indomethacin 25 MG CAPSULE 50 MG PO ×3 (08:18→20:04)
[2024-01-21] MEDS: LORazepam 1 MG TABLET PO ×2 (08:18→20:03)
[2024-01-21] MEDS: Folic Acid 1 MG TABLET PO (08:19)
[2024-01-21] MEDS: gemfibroziL 600 MG TABLET PO ×2 (08:19→20:03)
--- NOTE | 2024-01-21 10:25 | P.PNPSI_ITS ---
Subjective Subjective Date of Service: 01/21/24 Reason For Visit: Depression, SI, alcohol withdrawal Subjective Notes: Conditional Voluntary Healthcare Proxy: No Guardianship: No Medical Problems Affecting Mental Status: No Interim History: Reports insomnia is improved. Ativan tapering proceeding without event. Denies visual perceptual alterations today. States he is now considering a program- states he believes we are being truthful with him and wanting to work with the team. Medication Compliance: Yes Side effects from medications: No Attending Groups: No Review of Systems Acute medical concerns: No Medical Review of Systems: unchanged Review of Systems Review of Systems Yes all other systems are reviewed and are negative Mental Status Exam Mental Status Exam Patient Appearance: Fatigued Patient Orientation: Person, Place, Time and Situation Level of Consciousness: Alert Patient Behavior: Talkative and Good Eye Contact Mood Description: Depressed and Apprehensive Affect Description: Flat Patient Cognition Impaired: No Ability to Follow Directions: Good Speech Pattern: Spontaneous Speech Memory Description: Intact Hallucinations: None Delusions: Not Present Thought Process: Distracted and Rumination Thought Content: positive for Perseveration Depressive Symptoms: Hopelessness, Unhappiness and Low Self Esteem Judgement: Fair Diagnostics Vital Signs (24Hr): Vital Signs - 24 hr 01/20/24 20:38 01/21/24 08:00 Temperature 97.8 F 97.4 F Pulse Rate 97 75 Respiratory Rate 17 18 Blood Pressure 117/55 L 141/71 H Pulse Oximetry 99 97 Oxygen Delivery Method Room Air Room Air BMI result Body Mass Index 26.3 Medications Medications Current Medications Acetaminophen (Acetaminophen 325 Mg Tablet) 650 mg PO Q6H PRN PRN Reason: Headache/Pain Mild Scale (1-3) Last Admin: 01/19/24 17:13 Dose: 650 mg Al Hydroxide/Mg Hydroxide (Magnesium Hydrox/Alum Hydrox 30 Ml Oral.Susp) 30 ml PO Q6H PRN PRN Reason: Heartburn/Nausea Last Admin: 01/19/24 14:47 Dose: 30 ml Amoxicillin/Clavulanate Potassium (Amoxicillin/Potassium Clav 875 Mg Tablet) 875 mg PO BID DAIN Last Admin: 01/21/24 08:18 Dose: 875 mg Clonidine HCl (Clonidine Hcl 0.1 Mg Tablet) 0.1 mg PO BID PRN; Protocol PRN Reason: anxiety Last Admin: 01/18/24 06:57 Dose: 0.1 mg Ergocalciferol (Ergocalciferol (Vitamin D2) 1,250 Mcg Capsule) 1,250 mcg PO Mo@0900 [facility] Last Admin: 01/19/24 08:39 Dose: 1,250 mcg Escitalopram Oxalate (Escitalopram Oxalate 5 Mg Tablet) 5 mg PO DAILY [facility] Last Admin: 01/21/24 08:18 Dose: 5 mg Folic Acid (Folic Acid 1 Mg Tablet) 1 mg PO DAILY [facility] Last Admin: 01/21/24 08:19 Dose: 1 mg Gemfibrozil (Gemfibrozil 600 Mg Tablet) 600 mg PO BIDAC [facility] Last Admin: 01/21/24 08:19 Dose: 600 mg Hydroxyzine HCl (Hydroxyzine Hcl 25 Mg Tablet) 25 mg PO Q6H PRN PRN Reason: Anxiety Last Admin: 01/19/24 20:06 Dose: 25 mg Indomethacin (Indomethacin 25 Mg Capsule) 50 mg PO TID [facility] Stop: 01/23/24 14:59 Last Admin: 01/21/24 08:18 Dose: 50 mg Lamotrigine (Lamotrigine 25 Mg Tablet) 25 mg PO BEDTIME [facility] Last Admin: 01/20/24 21:08 Dose: 25 mg Lidocaine (Lidocaine 4 % Patch Adh..Patch) 1 patch TRANSDERMA DAILY [facility]; Protocol Last Admin: 01/21/24 08:17 Dose: 1 patch Lorazepam (Lorazepam 1 Mg Tablet) 1 mg PO BID [facility] Stop: 01/22/24 07:00 Last Admin: 01/21/24 08:18 Dose: 1 mg Lorazepam (Lorazepam 0.5 Mg Tablet) 0.5 mg PO 1300 DAIN Stop: 01/22/24 07:00 Last Admin: 01/20/24 14:30 Dose: 0.5 mg Lorazepam (Lorazepam 1 Mg Tablet) 1 mg PO BID [facility] Stop: 01/24/24 07:00 Lorazepam (Lorazepam 0.5 Mg Tablet) 0.5 mg PO DAILY [facility] Stop: 01/26/24 07:00 Lorazepam (Lorazepam 1 Mg Tablet) 1 mg PO BEDTIME [facility] Stop: 01/26/24 07:00 Lorazepam (Lorazepam 0.5 Mg Tablet) 0.5 mg PO BID [facility] Stop: 01/28/24 07:00 Lorazepam (Lorazepam 0.5 Mg Tablet) 0.5 mg PO BEDTIME [facility]IN Stop: 01/30/24 07:00 Magnesium Hydroxide (Milk Of Magnesia 30 Ml Oral.Susp) 30 ml PO DAILY PRN PRN Reason: Constipation Multivitamins/Vitamin C (Multivitamin Tablet) 1 tab PO DAILY [facility] Last Admin: 01/21/24 08:18 Dose: 1 tab Nicotine Polacrilex (Nicotine Polacrilex Lozenge 2 Mg Lozenge) 2 mg BUCCAL Q2H PRN PRN Reason: Nicotine Cravings Last Admin: 01/20/24 21:10 Dose: 2 mg Olanzapine (Olanzapine 10 Mg Tablet) 10 mg PO BID [facility] Last Admin: 01/21/24 08:18 Dose: 10 mg Oxycodone HCl (Oxycodone Hcl Immed Release 5 Mg Tablet) 5 mg PO Q8H PRN PRN Reason: moderate/severe pain Last Admin: 01/20/24 21:07 Dose: 5 mg Pyridoxine HCl (Pyridoxine Hcl (Vitamin B6) 50 Mg Tablet) 50 mg PO DAILY [facility] Last Admin: 01/21/24 08:18 Dose: 50 mg Thiamine HCl (Thiamine Hcl 100 Mg Tablet) 100 mg PO DAILY [facility] Last Admin: 01/21/24 08:18 Dose: 100 mg Trazodone HCl (Trazodone Hcl 50 Mg Tablet) 50 mg PO BEDTIME MRX1 PRN PRN Reason: Insomnia Last Admin: 01/20/24 21:08 Dose: 50 mg Vitamin D (Cholecalciferol (Vitamin D3) 10 Mcg Tablet) 10 mcg PO DAILY [facility] Last Admin: 01/21/24 08:18 Dose: 10 mcg Allergies Allergies Allergy/AdvReac Type Severity Reaction Status Date / Time No Known Allergies Allergy Verified 01/15/24 15:36 Assessment & Plan Assessment & Plan (1) Mood disorder: Status: Acute Code(s): F39 - Unspecified mood [affective] disorder (2) PTSD (post-traumatic stress disorder): Status: Acute Code(s): F43.10 - Post-traumatic stress disorder, unspecified (3) Alcohol use disorder: Status: Acute Code(s): F10.90 - Alcohol use, unspecified, uncomplicated Plan 58 yo male, history of PTSD, mood disorder, alcohol use disorder, admitted in transfer from [facility] after a medical detox and admit for a possible aspiration pneumonia on 01/09/24. Plan: Continue medical regime Lexapro 5 mg a.m. Olanzapine 5 mg bid MVI, Folic Acid, Thiamine Lidocaine patch to knee Uric acid level 01/16. Addiction consult-?Vivitrol 01/17- Continue tx. ?increase of Olanzapine 01/18. 01/18- Increase Olanzapine to 10 mg bid Lamictal 25 mg HS 01/21/24: Continue tapering of Lorazepam Pt considering a program post discharge Patient educated on: therapeutic strategies Informed Consent: understands Reason for continued inpatient stay Substantial Risk for: rapid decompensation Time Spent With Patient Time: Total time managing care of this patient today ____ minutes.
--- NOTE | 2024-01-21 12:19 | P.EN_ITS ---
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 Upon chart review, patient still taking oxycodone. Not appropriate to start naltrexone while still taking pxycodone Time Spent With Patient Time: Total time managing care of this patient today ____ minutes.
[2024-01-21] MEDS: LORazepam 0.5 MG TABLET PO (13:35)
[2024-01-21] MEDS: Nicotine Polacrilex Lozenge 2 MG LOZENGE BUCCAL ×3 (13:57→20:52)
[2024-01-21 18:00] VITALS: BP 148/92; PULSE 83; RESP 18; TEMP 37; O2SAT 97
[2024-01-21] MEDS: cloNIDine HCL 0.1 MG TABLET PO (20:03)
[2024-01-21] MEDS: lamoTRIgine 25 MG TABLET PO (20:03)
[2024-01-21 20:35] VITALS: BP 138/89; PULSE 90; RESP 18; O2SAT 97
[2024-01-21] MEDS: hydrOXYzine HCL 25 MG TABLET PO (20:37)
[2024-01-22 06:00] VITALS: BP 132/84; PULSE 82; RESP 18; O2SAT 98
[2024-01-22 07:00] VITALS: BMI 26.9
[2024-01-22] MEDS: Folic Acid 1 MG TABLET PO (09:07)
[2024-01-22] MEDS: OLANZapine 10 MG TABLET PO ×2 (09:07→21:30)
[2024-01-22] MEDS: Indomethacin 25 MG CAPSULE 50 MG PO ×3 (09:07→21:30)
[2024-01-22] MEDS: LORazepam 1 MG TABLET PO ×2 (09:08→21:33)
[2024-01-22] MEDS: Escitalopram Oxalate 5 MG TABLET PO (09:08)
[2024-01-22] MEDS: Amoxicillin/Potassium Clav 875 MG TABLET PO ×2 (09:08→21:30)
[2024-01-22] MEDS: Thiamine HCL 100 MG TABLET PO (09:08)
[2024-01-22] MEDS: gemfibroziL 600 MG TABLET PO ×2 (09:08→17:47)
[2024-01-22] MEDS: Pyridoxine HCl (Vitamin B6) 50 MG TABLET PO (09:08)
[2024-01-22] MEDS: Cholecalciferol (Vitamin D3) 10 MCG TABLET PO (09:08)
[2024-01-22] MEDS: Multivitamin TABLET 1 TAB PO (09:08)
[2024-01-22] MEDS: Lidocaine 4 % Patch ADH..PATCH 1 PATCH TRANSDERMA (09:12)
[2024-01-22] MEDS: Nicotine Polacrilex Lozenge 2 MG LOZENGE BUCCAL ×3 (10:22→18:23)
--- NOTE | 2024-01-22 17:49 | HO.PSYCHPN ---
Subjective Subjective Date of Service: 01/22/24 Reason For Visit: Depression, SI, alcohol withdrawal Interim History: Reviewed with Dr. Mcrae. Social with peers, pt reports he is feeling anxious, agitated and depressed today; pt stated, I'm probably feeling this way because I'm craving alcohol and cigarettes . Pt reports auditory and visual hallucinations; pt stated, I keep hearing someone call my name and I sometimes see bugs crawling on the smith . pt denies SI/HI. Medication Compliance: Yes Attending Groups: Yes Mental Status Exam Mental Status Exam Narrative: Pt is alert and oriented; behavior is cooperative and calm; dressed in casual attire; mood is described as anxious, depressed, agitated ; eye contact appropriate; Speech is normal rate, volume and prosody and not pressured; thought process is organized and goal directed; Thought content is on tx; denies SI/HI. Pt reports auditory and visual hallucinations. Diagnostics Vital Signs (24Hr): Vital Signs - 24 hr 01/21/24 18:00 01/21/24 20:35 01/22/24 06:00 Temperature 98.6 F Pulse Rate 83 90 82 Respiratory Rate 18 18 18 Blood Pressure 148/92 H 138/89 132/84 Pulse Oximetry 97 97 98 Oxygen Delivery Method Room Air Room Air Room Air BMI result Body Mass Index 26.9 Medications Medications Current Medications Acetaminophen (Acetaminophen 325 Mg Tablet) 650 mg PO Q6H PRN PRN Reason: Headache/Pain Mild Scale (1-3) Last Admin: 01/19/24 17:13 Dose: 650 mg Al Hydroxide/Mg Hydroxide (Magnesium Hydrox/Alum Hydrox 30 Ml Oral.Susp) 30 ml PO Q6H PRN PRN Reason: Heartburn/Nausea Last Admin: 01/19/24 14:47 Dose: 30 ml Amoxicillin/Clavulanate Potassium (Amoxicillin/Potassium Clav 875 Mg Tablet) 875 mg PO BID DAIN Last Admin: 01/22/24 09:08 Dose: 875 mg Clonidine HCl (Clonidine Hcl 0.1 Mg Tablet) 0.1 mg PO BID PRN; Protocol PRN Reason: anxiety Last Admin: 01/21/24 20:03 Dose: 0.1 mg Ergocalciferol (Ergocalciferol (Vitamin D2) 1,250 Mcg Capsule) 1,250 mcg PO Mo@0900 [facility] Last Admin: 01/19/24 08:39 Dose: 1,250 mcg Escitalopram Oxalate (Escitalopram Oxalate 5 Mg Tablet) 5 mg PO DAILY [facility] Last Admin: 01/22/24 09:08 Dose: 5 mg Folic Acid (Folic Acid 1 Mg Tablet) 1 mg PO DAILY [facility] Last Admin: 01/22/24 09:07 Dose: 1 mg Gemfibrozil (Gemfibrozil 600 Mg Tablet) 600 mg PO BIDAC [facility] Last Admin: 01/22/24 17:47 Dose: 600 mg Hydroxyzine HCl (Hydroxyzine Hcl 25 Mg Tablet) 25 mg PO Q6H PRN PRN Reason: Anxiety Last Admin: 01/21/24 20:37 Dose: 25 mg Indomethacin (Indomethacin 25 Mg Capsule) 50 mg PO TID [facility] Stop: 01/23/24 14:59 Last Admin: 01/22/24 14:16 Dose: 50 mg Lamotrigine (Lamotrigine 25 Mg Tablet) 25 mg PO BEDTIME [facility] Last Admin: 01/21/24 20:03 Dose: 25 mg Lidocaine (Lidocaine 4 % Patch Adh..Patch) 1 patch TRANSDERMA DAILY [facility]; Protocol Last Admin: 01/22/24 09:12 Dose: 1 patch Lorazepam (Lorazepam 1 Mg Tablet) 1 mg PO BID [facility] Stop: 01/24/24 07:00 Last Admin: 01/22/24 09:08 Dose: 1 mg Lorazepam (Lorazepam 0.5 Mg Tablet) 0.5 mg PO DAILY [facility] Stop: 01/26/24 07:00 Lorazepam (Lorazepam 1 Mg Tablet) 1 mg PO BEDTIME [facility] Stop: 01/26/24 07:00 Lorazepam (Lorazepam 0.5 Mg Tablet) 0.5 mg PO BID DAIN Stop: 01/28/24 07:00 Lorazepam (Lorazepam 0.5 Mg Tablet) 0.5 mg PO BEDTIME [facility] Stop: 01/30/24 07:00 Magnesium Hydroxide (Milk Of Magnesia 30 Ml Oral.Susp) 30 ml PO DAILY PRN PRN Reason: Constipation Multivitamins/Vitamin C (Multivitamin Tablet) 1 tab PO DAILY [facility] Last Admin: 01/22/24 09:08 Dose: 1 tab Nicotine Polacrilex (Nicotine Polacrilex Lozenge 2 Mg Lozenge) 2 mg BUCCAL Q2H PRN PRN Reason: Nicotine Cravings Last Admin: 01/22/24 14:17 Dose: 2 mg Olanzapine (Olanzapine 10 Mg Tablet) 10 mg PO BID [facility] Last Admin: 01/22/24 09:07 Dose: 10 mg Oxycodone HCl (Oxycodone Hcl Immed Release 5 Mg Tablet) 5 mg PO Q8H PRN PRN Reason: moderate/severe pain Last Admin: 01/20/24 21:07 Dose: 5 mg Pyridoxine HCl (Pyridoxine Hcl (Vitamin B6) 50 Mg Tablet) 50 mg PO DAILY [facility] Last Admin: 01/22/24 09:08 Dose: 50 mg Thiamine HCl (Thiamine Hcl 100 Mg Tablet) 100 mg PO DAILY [facility] Last Admin: 01/22/24 09:08 Dose: 100 mg Trazodone HCl (Trazodone Hcl 50 Mg Tablet) 50 mg PO BEDTIME MRX1 PRN PRN Reason: Insomnia Last Admin: 01/20/24 21:08 Dose: 50 mg Vitamin D (Cholecalciferol (Vitamin D3) 10 Mcg Tablet) 10 mcg PO DAILY [facility] Last Admin: 01/22/24 09:08 Dose: 10 mcg Allergies Allergies Allergy/AdvReac Type Severity Reaction Status Date / Time No Known Allergies Allergy Verified 01/15/24 15:36 Assessment & Plan Assessment & Plan (1) Mood disorder: Status: Acute Code(s): F39 - Unspecified mood [affective] disorder (2) PTSD (post-traumatic stress disorder): Status: Acute Code(s): F43.10 - Post-traumatic stress disorder, unspecified (3) Alcohol use disorder: Status: Acute Code(s): F10.90 - Alcohol use, unspecified, uncomplicated Plan 58 yo male, history of PTSD, mood disorder, alcohol use disorder, admitted in transfer from [facility] after a medical detox and admit for a possible aspiration pneumonia on 01/09/24. Plan: Continue medical regime Lexapro 5 mg a.m. Olanzapine 5 mg bid MVI, Folic Acid, Thiamine Lidocaine patch to knee Uric acid level 01/16. Addiction consult-?Vivitrol 01/17- Continue tx. ?increase of Olanzapine 01/18. 01/18- Increase Olanzapine to 10 mg bid Lamictal 25 mg HS 01/21/24: Continue tapering of Lorazepam Pt considering a program post discharge 01/21: continue current tx plan. Patient educated on: medication risk/benefits and therapeutic strategies Informed Consent: understands Reason for continued inpatient stay Substantial Risk for: med/psych decompensation Time Spent With Patient Time: Total time managing care of this patient today _20___ minutes.
[2024-01-22 18:00] VITALS: BP 161/86; PULSE 98; RESP 18; TEMP 37; O2SAT 97
[2024-01-22] MEDS: oxyCODONE HCl Immed Release 5 MG TABLET PO (21:30)
[2024-01-22] MEDS: cloNIDine HCL 0.1 MG TABLET PO (21:31)
[2024-01-22] MEDS: lamoTRIgine 25 MG TABLET PO (21:31)
[2024-01-22] MEDS: traZODone HCL 50 MG TABLET PO (21:31)
[2024-01-22] MEDS: hydrOXYzine HCL 25 MG TABLET PO (21:32)
[2024-01-23 06:00] VITALS: BP 117/53; PULSE 83; RESP 16; TEMP 36.4; O2SAT 96
[2024-01-23] MEDS: Escitalopram Oxalate 5 MG TABLET PO (08:13)
[2024-01-23] MEDS: Amoxicillin/Potassium Clav 875 MG TABLET PO ×2 (08:13→21:42)
[2024-01-23] MEDS: Thiamine HCL 100 MG TABLET PO (08:13)
[2024-01-23] MEDS: Indomethacin 25 MG CAPSULE 50 MG PO (08:13)
[2024-01-23] MEDS: LORazepam 1 MG TABLET PO ×2 (08:13→21:42)
[2024-01-23] MEDS: Cholecalciferol (Vitamin D3) 10 MCG TABLET PO (08:15)
[2024-01-23] MEDS: Folic Acid 1 MG TABLET PO (08:15)
[2024-01-23] MEDS: gemfibroziL 600 MG TABLET PO ×2 (08:16→17:29)
[2024-01-23] MEDS: OLANZapine 10 MG TABLET PO ×2 (08:16→21:42)
[2024-01-23] MEDS: Lidocaine 4 % Patch ADH..PATCH 1 PATCH TRANSDERMA (08:16)
[2024-01-23] MEDS: Pyridoxine HCl (Vitamin B6) 50 MG TABLET PO (08:16)
[2024-01-23] MEDS: Multivitamin TABLET 1 TAB PO (08:16)
[2024-01-23] MEDS: Nicotine Polacrilex Lozenge 2 MG LOZENGE BUCCAL ×3 (14:50→21:43)
--- NOTE | 2024-01-23 15:05 | HO.PSYCHPN ---
Subjective Subjective Date of Service: 01/23/24 Reason For Visit: Depression, SI, alcohol withdrawal Subjective Notes: Conditional Voluntary Interim History: Reviewed with Dr. Mcrae. pt reports feeling miserable today; pt stated, one minute I love life and the next I don't. I don't know why . pt denies SI/HI/VH/AH. Pt reported he didn't need anything and just wanted to relax . Medication Compliance: Yes Review of Systems Constitutional: Reports as per HPI Eyes: Reports as per HPI Reports as per HPI Cardiovascular: Reports as per HPI Respiratory: Reports as per HPI Gastrointestinal: Reports as per HPI Genitourinary: Reports as per HPI Musculoskeletal: Reports as per HPI Skin/Breast: Reports as per HPI Reports as per HPI Psychiatric: Reports as per HPI Endocrine: Reports as per HPI Hematologic/Lymphatic: Reports as per HPI Allergic/Immunologic: Reports as per HPI Mental Status Exam Mental Status Exam Narrative: Pt is alert and oriented; behavior is cooperative, guarded, calm; dressed in casual attire; mood is described as miserable ; eye contact appropriate; Speech is normal rate, volume and prosody and not pressured; thought process is organized; denies SI/HI/VH/AH. Diagnostics Vital Signs (24Hr): Vital Signs - 24 hr 01/22/24 18:00 01/23/24 06:00 Temperature 98.6 F 97.6 F Pulse Rate 98 83 Respiratory Rate 18 16 Blood Pressure 161/86 H 117/53 L Pulse Oximetry 97 96 Oxygen Delivery Method Room Air Room Air BMI result Body Mass Index 26.9 Medications Medications Current Medications Acetaminophen (Acetaminophen 325 Mg Tablet) 650 mg PO Q6H PRN PRN Reason: Headache/Pain Mild Scale (1-3) Last Admin: 01/19/24 17:13 Dose: 650 mg Al Hydroxide/Mg Hydroxide (Magnesium Hydrox/Alum Hydrox 30 Ml Oral.Susp) 30 ml PO Q6H PRN PRN Reason: Heartburn/Nausea Last Admin: 01/19/24 14:47 Dose: 30 ml Amoxicillin/Clavulanate Potassium (Amoxicillin/Potassium Clav 875 Mg Tablet) 875 mg PO BID DAIN Last Admin: 01/23/24 08:13 Dose: 875 mg Clonidine HCl (Clonidine Hcl 0.1 Mg Tablet) 0.1 mg PO BID PRN; Protocol PRN Reason: anxiety Last Admin: 01/22/24 21:31 Dose: 0.1 mg Ergocalciferol (Ergocalciferol (Vitamin D2) 1,250 Mcg Capsule) 1,250 mcg PO Mo@0900 [facility] Last Admin: 01/19/24 08:39 Dose: 1,250 mcg Escitalopram Oxalate (Escitalopram Oxalate 5 Mg Tablet) 5 mg PO DAILY [facility] Last Admin: 01/23/24 08:13 Dose: 5 mg Folic Acid (Folic Acid 1 Mg Tablet) 1 mg PO DAILY [facility] Last Admin: 01/23/24 08:15 Dose: 1 mg Gemfibrozil (Gemfibrozil 600 Mg Tablet) 600 mg PO BIDAC [facility] Last Admin: 01/23/24 08:16 Dose: 600 mg Hydroxyzine HCl (Hydroxyzine Hcl 25 Mg Tablet) 25 mg PO Q6H PRN PRN Reason: Anxiety Last Admin: 01/22/24 21:32 Dose: 25 mg Lamotrigine (Lamotrigine 25 Mg Tablet) 25 mg PO BEDTIME [facility] Last Admin: 01/22/24 21:31 Dose: 25 mg Lidocaine (Lidocaine 4 % Patch Adh..Patch) 1 patch TRANSDERMA DAILY [facility]; Protocol Last Admin: 01/23/24 08:16 Dose: 1 patch Lorazepam (Lorazepam 1 Mg Tablet) 1 mg PO BID [facility] Stop: 01/24/24 07:00 Last Admin: 01/23/24 08:13 Dose: 1 mg Lorazepam (Lorazepam 0.5 Mg Tablet) 0.5 mg PO DAILY [facility] Stop: 01/26/24 07:00 Lorazepam (Lorazepam 1 Mg Tablet) 1 mg PO BEDTIME DAIN Stop: 01/26/24 07:00 Lorazepam (Lorazepam 0.5 Mg Tablet) 0.5 mg PO BID [facility] Stop: 01/28/24 07:00 Lorazepam (Lorazepam 0.5 Mg Tablet) 0.5 mg PO BEDTIME [facility] Stop: 01/30/24 07:00 Magnesium Hydroxide (Milk Of Magnesia 30 Ml Oral.Susp) 30 ml PO DAILY PRN PRN Reason: Constipation Multivitamins/Vitamin C (Multivitamin Tablet) 1 tab PO DAILY [facility] Last Admin: 01/23/24 08:16 Dose: 1 tab Nicotine Polacrilex (Nicotine Polacrilex Lozenge 2 Mg Lozenge) 2 mg BUCCAL Q2H PRN PRN Reason: Nicotine Cravings Last Admin: 01/23/24 14:50 Dose: 2 mg Olanzapine (Olanzapine 10 Mg Tablet) 10 mg PO BID [facility] Last Admin: 01/23/24 08:16 Dose: 10 mg Oxycodone HCl (Oxycodone Hcl Immed Release 5 Mg Tablet) 5 mg PO Q8H PRN PRN Reason: moderate/severe pain Last Admin: 01/22/24 21:30 Dose: 5 mg Pyridoxine HCl (Pyridoxine Hcl (Vitamin B6) 50 Mg Tablet) 50 mg PO DAILY [facility] Last Admin: 01/23/24 08:16 Dose: 50 mg Thiamine HCl (Thiamine Hcl 100 Mg Tablet) 100 mg PO DAILY [facility] Last Admin: 01/23/24 08:13 Dose: 100 mg Trazodone HCl (Trazodone Hcl 50 Mg Tablet) 50 mg PO BEDTIME MRX1 PRN PRN Reason: Insomnia Last Admin: 01/22/24 21:31 Dose: 50 mg Vitamin D (Cholecalciferol (Vitamin D3) 10 Mcg Tablet) 10 mcg PO DAILY [facility] Last Admin: 01/23/24 08:15 Dose: 10 mcg Allergies Allergies Allergy/AdvReac Type Severity Reaction Status Date / Time No Known Allergies Allergy Verified 01/15/24 15:36 Assessment & Plan Assessment & Plan (1) Mood disorder: Status: Acute Code(s): F39 - Unspecified mood [affective] disorder (2) PTSD (post-traumatic stress disorder): Status: Acute Code(s): F43.10 - Post-traumatic stress disorder, unspecified (3) Alcohol use disorder: Status: Acute Code(s): F10.90 - Alcohol use, unspecified, uncomplicated Plan 58 yo male, history of PTSD, mood disorder, alcohol use disorder, admitted in transfer from [facility] after a medical detox and admit for a possible aspiration pneumonia on 01/09/24. Plan: Continue medical regime Lexapro 5 mg a.m. Olanzapine 5 mg bid MVI, Folic Acid, Thiamine Lidocaine patch to knee Uric acid level 01/16. Addiction consult-?Vivitrol 01/17- Continue tx. ?increase of Olanzapine 01/18. 01/18- Increase Olanzapine to 10 mg bid Lamictal 25 mg HS 01/21/24: Continue tapering of Lorazepam Pt considering a program post discharge 01/21: continue current tx plan. 01/22: continue tx plan. Patient educated on: medication risk/benefits and therapeutic strategies Informed Consent: understands Reason for continued inpatient stay Substantial Risk for: med/psych decompensation Time Spent With Patient Time: Total time managing care of this patient today _20___ minutes.
[2024-01-23] MEDS: lamoTRIgine 25 MG TABLET PO (21:42)
[2024-01-23] MEDS: cloNIDine HCL 0.1 MG TABLET PO (21:43)
[2024-01-23] MEDS: traZODone HCL 50 MG TABLET PO (21:43)
[2024-01-23 21:45] VITALS: BP 129/87; PULSE 96; RESP 18; TEMP 36.9; O2SAT 97
[2024-01-23] MEDS: oxyCODONE HCl Immed Release 5 MG TABLET PO (21:46)
[2024-01-24 06:00] VITALS: BP 110/65; PULSE 87; RESP 16; TEMP 36.1; O2SAT 98
[2024-01-24] MEDS: LORazepam 0.5 MG TABLET PO ×2 (10:03→10:20)
[2024-01-24] MEDS: Folic Acid 1 MG TABLET PO (10:04)
[2024-01-24] MEDS: Pyridoxine HCl (Vitamin B6) 50 MG TABLET PO (10:04)
[2024-01-24] MEDS: Escitalopram Oxalate 5 MG TABLET PO (10:04)
[2024-01-24] MEDS: Multivitamin TABLET 1 TAB PO (10:04)
[2024-01-24] MEDS: OLANZapine 10 MG TABLET PO ×2 (10:05→20:10)
[2024-01-24] MEDS: Amoxicillin/Potassium Clav 875 MG TABLET PO ×2 (10:05→20:10)
[2024-01-24] MEDS: Lidocaine 4 % Patch ADH..PATCH 1 PATCH TRANSDERMA (10:05)
[2024-01-24] MEDS: gemfibroziL 600 MG TABLET PO ×2 (10:05→17:42)
[2024-01-24] MEDS: Cholecalciferol (Vitamin D3) 10 MCG TABLET PO (10:05)
[2024-01-24] MEDS: Thiamine HCL 100 MG TABLET PO (10:20)
[2024-01-24] MEDS: oxyCODONE HCl Immed Release 5 MG TABLET PO ×2 (10:21→18:20)
[2024-01-24] MEDS: Nicotine Polacrilex Lozenge 2 MG LOZENGE BUCCAL ×5 (10:35→20:11)
[2024-01-24] MEDS: Acetaminophen 325 MG TABLET 650 MG PO (15:23)
[2024-01-24] MEDS: hydrOXYzine HCL 25 MG TABLET PO (15:23)
[2024-01-24 18:00] VITALS: BP 144/82; PULSE 85; RESP 16; TEMP 36.3; O2SAT 97
[2024-01-24] MEDS: LORazepam 1 MG TABLET PO ×2 (18:21→20:10)
[2024-01-24] MEDS: lamoTRIgine 25 MG TABLET PO (20:10)
[2024-01-24] MEDS: cloNIDine HCL 0.1 MG TABLET PO (20:11)
--- NOTE | 2024-01-24 21:46 | P.PNPSI_ITS ---
Subjective Subjective Date of Service: 01/24/24 Reason For Visit: Depression, SI, alcohol withdrawal Subjective Notes: Conditional Voluntary Interim History: Patient found resting in bed after breakfast. Was pleasant and conversant. Appears unkempt, depressed. Reports mood as up and down, lots of highs and lows that come and go Reports reasons for admission: I'm messed up and has a history of panic attacks and paranoia as well as depression and anxiety. Says he's an alcoholic, had quit drinking for 3 months, relapsed in Sep 28 went to [facility] and went through withdrawals, says he was sober again until just recently and relapsed, drank and then came to hospital and again went through withdrawals. Currently denies any withdrawal symptoms, but endorses cravings that are really bad . Says he was just started on meds 3 days ago. Was on Zoloft x 1 year in 2004, no meds since. Reports mood as depressed. Currently endorses SI 'I pray the Lord to take my soul' that's a prayer I say every night . He denies any thoughts or plans to act on the SI. Says he has had it a long time. Denies HI, AH, VH Medication Compliance: Yes Side effects from medications: No Mental Status Exam Mental Status Exam Narrative: Pt is alert and oriented; behavior is cooperative, guarded, calm; dressed in casual attire; mood is described as miserable ; eye contact appropriate; Speech is normal rate, volume and prosody and not pressured; thought process is organized; denies SI/HI/VH/AH. Diagnostics Vital Signs (24Hr): Vital Signs - 24 hr 01/24/24 06:00 01/24/24 18:00 Temperature 96.9 F 97.4 F Pulse Rate 87 85 Respiratory Rate 16 16 Blood Pressure 110/65 144/82 H Pulse Oximetry 98 97 Oxygen Delivery Method Room Air Room Air BMI result Body Mass Index 26.9 Medications Medications Current Medications Acetaminophen (Acetaminophen 325 Mg Tablet) 650 mg PO Q6H PRN PRN Reason: Headache/Pain Mild Scale (1-3) Last Admin: 01/24/24 15:23 Dose: 650 mg Al Hydroxide/Mg Hydroxide (Magnesium Hydrox/Alum Hydrox 30 Ml Oral.Susp) 30 ml PO Q6H PRN PRN Reason: Heartburn/Nausea Last Admin: 01/19/24 14:47 Dose: 30 ml Amoxicillin/Clavulanate Potassium (Amoxicillin/Potassium Clav 875 Mg Tablet) 875 mg PO BID [facility] Last Admin: 01/24/24 20:10 Dose: 875 mg Clonidine HCl (Clonidine Hcl 0.1 Mg Tablet) 0.1 mg PO BID PRN; Protocol PRN Reason: anxiety Last Admin: 01/24/24 20:11 Dose: 0.1 mg Ergocalciferol (Ergocalciferol (Vitamin D2) 1,250 Mcg Capsule) 1,250 mcg PO Mo@0900 DAIN Last Admin: 01/19/24 08:39 Dose: 1,250 mcg Escitalopram Oxalate (Escitalopram Oxalate 5 Mg Tablet) 5 mg PO DAILY [facility] Last Admin: 01/24/24 10:04 Dose: 5 mg Folic Acid (Folic Acid 1 Mg Tablet) 1 mg PO DAILY DAIN Last Admin: 01/24/24 10:04 Dose: 1 mg Gemfibrozil (Gemfibrozil 600 Mg Tablet) 600 mg PO BIDAC [facility] Last Admin: 01/24/24 17:42 Dose: 600 mg Hydroxyzine HCl (Hydroxyzine Hcl 25 Mg Tablet) 25 mg PO Q6H PRN PRN Reason: Anxiety Last Admin: 01/24/24 15:23 Dose: 25 mg Lamotrigine (Lamotrigine 25 Mg Tablet) 25 mg PO BEDTIME [facility] Last Admin: 01/24/24 20:10 Dose: 25 mg Lidocaine (Lidocaine 4 % Patch Adh..Patch) 1 patch TRANSDERMA DAILY [facility]; Protocol Last Admin: 01/24/24 10:05 Dose: 1 patch Lorazepam (Lorazepam 0.5 Mg Tablet) 0.5 mg PO DAILY [facility] Stop: 01/26/24 07:00 Last Admin: 01/24/24 10:20 Dose: 0.5 mg Lorazepam (Lorazepam 1 Mg Tablet) 1 mg PO BEDTIME DAIN Stop: 01/26/24 07:00 Last Admin: 01/24/24 20:10 Dose: 1 mg Lorazepam (Lorazepam 0.5 Mg Tablet) 0.5 mg PO BID DAIN Stop: 01/28/24 07:00 Lorazepam (Lorazepam 0.5 Mg Tablet) 0.5 mg PO BEDTIME DAIN Stop: 01/30/24 07:00 Magnesium Hydroxide (Milk Of Magnesia 30 Ml Oral.Susp) 30 ml PO DAILY PRN PRN Reason: Constipation Multivitamins/Vitamin C (Multivitamin Tablet) 1 tab PO DAILY [facility] Last Admin: 01/24/24 10:04 Dose: 1 tab Nicotine Polacrilex (Nicotine Polacrilex Lozenge 2 Mg Lozenge) 2 mg BUCCAL Q2H PRN PRN Reason: Nicotine Cravings Last Admin: 01/24/24 20:11 Dose: 2 mg Olanzapine (Olanzapine 10 Mg Tablet) 10 mg PO BID [facility] Last Admin: 01/24/24 20:10 Dose: 10 mg Oxycodone HCl (Oxycodone Hcl Immed Release 5 Mg Tablet) 5 mg PO Q8H PRN PRN Reason: moderate/severe pain Last Admin: 01/24/24 18:20 Dose: 5 mg Pyridoxine HCl (Pyridoxine Hcl (Vitamin B6) 50 Mg Tablet) 50 mg PO DAILY [facility] Last Admin: 01/24/24 10:04 Dose: 50 mg Thiamine HCl (Thiamine Hcl 100 Mg Tablet) 100 mg PO DAILY [facility] Last Admin: 01/24/24 10:20 Dose: 100 mg Trazodone HCl (Trazodone Hcl 50 Mg Tablet) 50 mg PO BEDTIME MRX1 PRN PRN Reason: Insomnia Last Admin: 01/23/24 21:43 Dose: 50 mg Vitamin D (Cholecalciferol (Vitamin D3) 10 Mcg Tablet) 10 mcg PO DAILY [facility] Last Admin: 01/24/24 10:05 Dose: 10 mcg Allergies Allergies Allergy/AdvReac Type Severity Reaction Status Date / Time No Known Allergies Allergy Verified 01/15/24 15:36 Assessment & Plan Assessment & Plan (1) Mood disorder: Status: Acute Code(s): F39 - Unspecified mood [affective] disorder (2) PTSD (post-traumatic stress disorder): Status: Acute Code(s): F43.10 - Post-traumatic stress disorder, unspecified (3) Alcohol use disorder: Status: Acute Code(s): F10.90 - Alcohol use, unspecified, uncomplicated Plan 58 yo male, history of PTSD, mood disorder, alcohol use disorder, admitted in transfer from [facility] after a medical detox and admit for a possible aspiration pneumonia on 01/09/24. Plan: Continue medical regime Lexapro 5 mg a.m. Olanzapine 5 mg bid MVI, Folic Acid, Thiamine Lidocaine patch to knee Uric acid level 01/16. Addiction consult-?Vivitrol 01/17- Continue tx. ?increase of Olanzapine 01/18. 01/18- Increase Olanzapine to 10 mg bid Lamictal 25 mg HS 01/21/24: Continue tapering of Lorazepam Pt considering a program post discharge 01/21: continue current tx plan. 01/22: continue tx plan. 01/23: continue tx plan Reason for continued inpatient stay Substantial Risk for: inability to function and med/psych decompensation Time Spent With Patient Time: Total time managing care of this patient today ____ minutes.
[2024-01-25] MEDS: Nicotine Polacrilex Lozenge 2 MG LOZENGE BUCCAL ×6 (06:38→21:06)
[2024-01-25 08:00] VITALS: BP 117/74; PULSE 106; RESP 16; TEMP 37.3; O2SAT 96
[2024-01-25] MEDS: Amoxicillin/Potassium Clav 875 MG TABLET PO (09:11)
[2024-01-25] MEDS: Acetaminophen 325 MG TABLET 650 MG PO ×2 (09:12→17:26)
[2024-01-25] MEDS: Pyridoxine HCl (Vitamin B6) 50 MG TABLET PO (09:12)
[2024-01-25] MEDS: OLANZapine 10 MG TABLET PO ×2 (09:12→21:06)
[2024-01-25] MEDS: Multivitamin TABLET 1 TAB PO (09:12)
[2024-01-25] MEDS: gemfibroziL 600 MG TABLET PO ×2 (09:12→17:27)
[2024-01-25] MEDS: Folic Acid 1 MG TABLET PO (09:12)
[2024-01-25] MEDS: Thiamine HCL 100 MG TABLET PO (09:12)
[2024-01-25] MEDS: Cholecalciferol (Vitamin D3) 10 MCG TABLET PO (09:12)
[2024-01-25] MEDS: Escitalopram Oxalate 5 MG TABLET PO (09:13)
[2024-01-25] MEDS: Lidocaine 4 % Patch ADH..PATCH 1 PATCH TRANSDERMA (09:13)
[2024-01-25] MEDS: LORazepam 0.5 MG TABLET PO (09:13)
[2024-01-25] MEDS: oxyCODONE HCl Immed Release 5 MG TABLET PO (11:15)
[2024-01-25] MEDS: cloNIDine HCL 0.1 MG TABLET PO (17:26)
[2024-01-25] MEDS: hydrOXYzine HCL 25 MG TABLET PO (17:26)
[2024-01-25 19:03] VITALS: BP 166/89; PULSE 99; RESP 16; TEMP 36.1; O2SAT 99
[2024-01-25] MEDS: traZODone HCL 50 MG TABLET PO (21:06)
[2024-01-25] MEDS: lamoTRIgine 25 MG TABLET PO (21:06)
[2024-01-25] MEDS: LORazepam 1 MG TABLET PO (21:06)
--- NOTE | 2024-01-25 23:24 | HO.PSYCHPN ---
Subjective Subjective Date of Service: 01/25/24 Reason For Visit: Depression, SI, alcohol withdrawal Subjective Notes: Conditional Voluntary Interim History: FRIDAY: Patient found resting in bed after breakfast. Was pleasant and conversant. Appears unkempt, depressed. Reports mood as up and down, lots of highs and lows that come and go Repors reasons for admission: I'm messed up and has a history of panic attacks and paranoia as well as depression and anxiety. Says he's an alcoholic, had quit drinking for 3 months, relapsed in Sep 28 went to [facility] and went through withdrawals, says he was sober again until just recently and relapsed, drank and then came to hospital and again went through withdrawals. Currently denies any withdrawal symptoms, but endorses cravings that are really bad . Says he was just started on meds 3 days ago. Was on Zoloft x 1 year in 2004, no meds since. Reports mood as depressed. Currently endorses SI 'I pray the Lord to take my soul' that's a prayer I say every night . He denies any thoughts or plans to act on the SI. Says he has had it a long time. Denies HI, AH, VH. TODAY: Patient again found in his room, says he had been talking with his roommate for a while and says he is a nice tamiko . Also has been reading a book to occupy his time, is on pg 60 of a [employer] book. No complaints, says his mood is still low and continues with passive SI. On a positive note he says he feels good about being sober, but not sure how long it will last . 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 He also endorses AH as I hear my name being called sometimes and seeing shadows at night but none of these presently. Review of Systems Review of Systems gouty arthritis knee pain-chronic recovery from a tough detox Yes all other systems are reviewed and are negative and Unobtainable due to mental status Constitutional: Reports as per HPI Eyes: Reports as per HPI Reports as per HPI Cardiovascular: Reports as per HPI Respiratory: Reports as per HPI Gastrointestinal: Reports as per HPI Genitourinary: Reports as per HPI Musculoskeletal: Reports as per HPI Skin/Breast: Reports as per HPI Reports as per HPI Psychiatric: Reports as per HPI Endocrine: Reports as per HPI Hematologic/Lymphatic: Reports as per HPI Allergic/Immunologic: Reports as per HPI Mental Status Exam Mental Status Exam Narrative: Pt is alert and oriented; behavior is cooperative, guarded, calm; dressed in casual attire; mood is described as miserable ; eye contact appropriate; Speech is normal rate, volume and prosody and not pressured; thought process is organized; denies SI/HI/VH/AH. Patient Appearance: Fatigued Patient Orientation: Person, Place, Time and Situation Level of Consciousness: Alert Patient Behavior: Talkative and Good Eye Contact Mood Description: Depressed and Apprehensive Affect Description: Flat Patient Cognition Impaired: No Ability to Follow Directions: Good Speech Pattern: Spontaneous Speech Memory Description: Intact Diagnostics Vital Signs (24Hr): Vital Signs - 24 hr 01/25/24 08:00 01/25/24 19:03 Temperature 99.2 F 97.0 F Pulse Rate 106 H 99 Respiratory Rate 16 16 Blood Pressure 117/74 166/89 H Pulse Oximetry 96 99 Oxygen Delivery Method Room Air Room Air BMI result Body Mass Index 26.9 Medications Medications Current Medications Acetaminophen (Acetaminophen 325 Mg Tablet) 650 mg PO Q6H PRN PRN Reason: Headache/Pain Mild Scale (1-3) Last Admin: 01/25/24 17:26 Dose: 650 mg Al Hydroxide/Mg Hydroxide (Magnesium Hydrox/Alum Hydrox 30 Ml Oral.Susp) 30 ml PO Q6H PRN PRN Reason: Heartburn/Nausea Last Admin: 01/19/24 14:47 Dose: 30 ml Clonidine HCl (Clonidine Hcl 0.1 Mg Tablet) 0.1 mg PO BID PRN; Protocol PRN Reason: anxiety Last Admin: 01/25/24 17:26 Dose: 0.1 mg Ergocalciferol (Ergocalciferol (Vitamin D2) 1,250 Mcg Capsule) 1,250 mcg PO Mo@0900 [facility] Last Admin: 01/19/24 08:39 Dose: 1,250 mcg Escitalopram Oxalate (Escitalopram Oxalate 5 Mg Tablet) 5 mg PO DAILY [facility] Last Admin: 01/25/24 09:13 Dose: 5 mg Folic Acid (Folic Acid 1 Mg Tablet) 1 mg PO DAILY [facility] Last Admin: 01/25/24 09:12 Dose: 1 mg Gemfibrozil (Gemfibrozil 600 Mg Tablet) 600 mg PO BIDAC [facility] Last Admin: 01/25/24 17:27 Dose: 600 mg Hydroxyzine HCl (Hydroxyzine Hcl 25 Mg Tablet) 25 mg PO Q6H PRN PRN Reason: Anxiety Last Admin: 01/25/24 17:26 Dose: 25 mg Lamotrigine (Lamotrigine 25 Mg Tablet) 25 mg PO BEDTIME DAIN Last Admin: 01/25/24 21:06 Dose: 25 mg Lidocaine (Lidocaine 4 % Patch Adh..Patch) 1 patch TRANSDERMA DAILY [facility]; Protocol Last Admin: 01/25/24 09:13 Dose: 1 patch Lidocaine (Lidocaine 4 % Patch Adh..Patch) 1 patch TRANSDERMA DAILY [facility]; Protocol Lorazepam (Lorazepam 0.5 Mg Tablet) 0.5 mg PO DAILY DAIN Stop: 01/26/24 07:00 Last Admin: 01/25/24 09:13 Dose: 0.5 mg Lorazepam (Lorazepam 1 Mg Tablet) 1 mg PO BEDTIME DAIN Stop: 01/26/24 07:00 Last Admin: 01/25/24 21:06 Dose: 1 mg Lorazepam (Lorazepam 0.5 Mg Tablet) 0.5 mg PO BID DAIN Stop: 01/28/24 07:00 Lorazepam (Lorazepam 0.5 Mg Tablet) 0.5 mg PO BEDTIME DAIN Stop: 01/30/24 07:00 Magnesium Hydroxide (Milk Of Magnesia 30 Ml Oral.Susp) 30 ml PO DAILY PRN PRN Reason: Constipation Multivitamins/Vitamin C (Multivitamin Tablet) 1 tab PO DAILY [facility] Last Admin: 01/25/24 09:12 Dose: 1 tab Nicotine Polacrilex (Nicotine Polacrilex Lozenge 2 Mg Lozenge) 2 mg BUCCAL Q2H PRN PRN Reason: Nicotine Cravings Last Admin: 01/25/24 21:06 Dose: 2 mg Olanzapine (Olanzapine 10 Mg Tablet) 10 mg PO BID [facility] Last Admin: 01/25/24 21:06 Dose: 10 mg Oxycodone HCl (Oxycodone Hcl Immed Release 5 Mg Tablet) 5 mg PO Q8H PRN PRN Reason: moderate/severe pain Last Admin: 01/25/24 11:15 Dose: 5 mg Pyridoxine HCl (Pyridoxine Hcl (Vitamin B6) 50 Mg Tablet) 50 mg PO DAILY [facility] Last Admin: 01/25/24 09:12 Dose: 50 mg Thiamine HCl (Thiamine Hcl 100 Mg Tablet) 100 mg PO DAILY DAIN Last Admin: 01/25/24 09:12 Dose: 100 mg Trazodone HCl (Trazodone Hcl 50 Mg Tablet) 50 mg PO BEDTIME MRX1 PRN PRN Reason: Insomnia Last Admin: 01/25/24 21:06 Dose: 50 mg Vitamin D (Cholecalciferol (Vitamin D3) 10 Mcg Tablet) 10 mcg PO DAILY [facility] Last Admin: 01/25/24 09:12 Dose: 10 mcg Allergies Allergies Allergy/AdvReac Type Severity Reaction Status Date / Time No Known Allergies Allergy Verified 01/15/24 15:36 Assessment & Plan Assessment & Plan (1) Mood disorder: Status: Acute Code(s): F39 - Unspecified mood [affective] disorder (2) PTSD (post-traumatic stress disorder): Status: Acute Code(s): F43.10 - Post-traumatic stress disorder, unspecified (3) Alcohol use disorder: Status: Acute Code(s): F10.90 - Alcohol use, unspecified, uncomplicated Plan 58 yo male, history of PTSD, mood disorder, alcohol use disorder, admitted in transfer from [facility] after a medical detox and admit for a possible aspiration pneumonia on 01/09/24. Plan: Continue medical regime Lexapro 5 mg a.m. Olanzapine 5 mg bid MVI, Folic Acid, Thiamine Lidocaine patch to knee Uric acid level 01/16. Addiction consult-?Vivitrol 01/17- Continue tx. ?increase of Olanzapine 01/18. 01/18- Increase Olanzapine to 10 mg bid Lamictal 25 mg HS 01/21/24: Continue tapering of Lorazepam Pt considering a program post discharge 01/21: continue current tx plan. 01/22: continue tx plan. Reason for continued inpatient stay Substantial Risk for: rapid decompensation and med/psych decompensation Time Spent With Patient Time: Total time managing care of this patient today ____ minutes.
[2024-01-26 06:00] VITALS: BP 129/81; PULSE 108; RESP 18; TEMP 36.1; O2SAT 97
[2024-01-26] MEDS: Escitalopram Oxalate 5 MG TABLET PO (08:48)
[2024-01-26] MEDS: Folic Acid 1 MG TABLET PO (08:48)
[2024-01-26] MEDS: LORazepam 0.5 MG TABLET PO ×3 (08:48→22:21)
[2024-01-26] MEDS: Cholecalciferol (Vitamin D3) 10 MCG TABLET PO (08:48)
[2024-01-26] MEDS: gemfibroziL 600 MG TABLET PO ×2 (08:48→17:37)
[2024-01-26] MEDS: OLANZapine 10 MG TABLET PO ×2 (08:48→20:27)
[2024-01-26] MEDS: Multivitamin TABLET 1 TAB PO (08:48)
[2024-01-26] MEDS: Pyridoxine HCl (Vitamin B6) 50 MG TABLET PO (08:48)
[2024-01-26] MEDS: Thiamine HCL 100 MG TABLET PO (08:48)
[2024-01-26] MEDS: Ergocalciferol (Vitamin D2) 1,250 MCG CAPSULE 1250 MCG PO (08:48)
[2024-01-26] MEDS: Lidocaine 4 % Patch ADH..PATCH 1 PATCH TRANSDERMA (08:56)
[2024-01-26] MEDS: Nicotine Polacrilex Lozenge 2 MG LOZENGE BUCCAL ×4 (09:35→20:31)
--- NOTE | 2024-01-26 09:55 | P.PNPSI_ITS ---
Subjective Subjective Date of Service: 01/26/24 Reason For Visit: Depression, SI, alcohol withdrawal Subjective Notes: Conditional Voluntary Interim History: co of panic- ongoing SI , no current plan in unit- but when he leaves he reports- not sure about giving up drinking =- but denies further sys of withdrawl right now- He denies hx of asthma- discussed prn propranlol for anxiety/panic Medication Compliance: Yes Side effects from medications: No Attending Groups: No Review of Systems Acute medical concerns: No Medical Review of Systems: unchanged Mental Status Exam Mental Status Exam Narrative: dressed in zakia lying in bed - looking angsty Patient Appearance: Fatigued, Disheveled and Perspiring Patient Orientation: Person, Place, Time and Situation Level of Consciousness: Awake Patient Behavior: Appropriate, Cooperative, Passive and Poor Eye Contact Mood Description: Anxious Affect Description: Apprehensive Patient Cognition Impaired: No Ability to Follow Directions: Fair Speech Pattern: Clear Thought Process: Intact Thought Content: positive for Intact, positive for Goal Oriented and positive for Suicidal Ideation Depressive Symptoms: Increased Anxiety Diagnostics Vital Signs (24Hr): Vital Signs - 24 hr 01/25/24 19:03 Temperature 97.0 F Pulse Rate 99 Respiratory Rate 16 Blood Pressure 166/89 H Pulse Oximetry 99 Oxygen Delivery Method Room Air BMI result Body Mass Index 26.9 Medications Medications Current Medications Acetaminophen (Acetaminophen 325 Mg Tablet) 650 mg PO Q6H PRN PRN Reason: Headache/Pain Mild Scale (1-3) Last Admin: 01/25/24 17:26 Dose: 650 mg Al Hydroxide/Mg Hydroxide (Magnesium Hydrox/Alum Hydrox 30 Ml Oral.Susp) 30 ml PO Q6H PRN PRN Reason: Heartburn/Nausea Last Admin: 01/19/24 14:47 Dose: 30 ml Clonidine HCl (Clonidine Hcl 0.1 Mg Tablet) 0.1 mg PO BID PRN; Protocol PRN Reason: anxiety Last Admin: 01/25/24 17:26 Dose: 0.1 mg Ergocalciferol (Ergocalciferol (Vitamin D2) 1,250 Mcg Capsule) 1,250 mcg PO Mo@0900 [facility] Last Admin: 01/26/24 08:48 Dose: 1,250 mcg Escitalopram Oxalate (Escitalopram Oxalate 5 Mg Tablet) 5 mg PO DAILY [facility] Last Admin: 01/26/24 08:48 Dose: 5 mg Folic Acid (Folic Acid 1 Mg Tablet) 1 mg PO DAILY [facility] Last Admin: 01/26/24 08:48 Dose: 1 mg Gemfibrozil (Gemfibrozil 600 Mg Tablet) 600 mg PO BIDAC [facility] Last Admin: 01/26/24 08:48 Dose: 600 mg Hydroxyzine HCl (Hydroxyzine Hcl 25 Mg Tablet) 25 mg PO Q6H PRN PRN Reason: Anxiety Last Admin: 01/25/24 17:26 Dose: 25 mg Lamotrigine (Lamotrigine 25 Mg Tablet) 25 mg PO BEDTIME [facility] Last Admin: 01/25/24 21:06 Dose: 25 mg Lidocaine (Lidocaine 4 % Patch Adh..Patch) 1 patch TRANSDERMA DAILY [facility]; Protocol Last Admin: 01/26/24 08:56 Dose: 1 patch Lidocaine (Lidocaine 4 % Patch Adh..Patch) 1 patch TRANSDERMA DAILY [facility]; Protocol Last Admin: 01/26/24 08:56 Dose: Not Given Lorazepam (Lorazepam 0.5 Mg Tablet) 0.5 mg PO BEDTIME [facility] Stop: 01/30/24 20:59 Lorazepam (Lorazepam 0.5 Mg Tablet) 0.5 mg PO BID [facility] Stop: 01/28/24 08:59 Last Admin: 01/26/24 08:48 Dose: 0.5 mg Magnesium Hydroxide (Milk Of Magnesia 30 Ml Oral.Susp) 30 ml PO DAILY PRN PRN Reason: Constipation Multivitamins/Vitamin C (Multivitamin Tablet) 1 tab PO DAILY [facility] Last Admin: 01/26/24 08:48 Dose: 1 tab Nicotine Polacrilex (Nicotine Polacrilex Lozenge 2 Mg Lozenge) 2 mg BUCCAL Q2H PRN PRN Reason: Nicotine Cravings Last Admin: 01/26/24 09:35 Dose: 2 mg Olanzapine (Olanzapine 10 Mg Tablet) 10 mg PO BID [facility] Last Admin: 01/26/24 08:48 Dose: 10 mg Oxycodone HCl (Oxycodone Hcl Immed Release 5 Mg Tablet) 5 mg PO Q8H PRN PRN Reason: moderate/severe pain Last Admin: 01/25/24 11:15 Dose: 5 mg Pyridoxine HCl (Pyridoxine Hcl (Vitamin B6) 50 Mg Tablet) 50 mg PO DAILY [facility] Last Admin: 01/26/24 08:48 Dose: 50 mg Thiamine HCl (Thiamine Hcl 100 Mg Tablet) 100 mg PO DAILY [facility] Last Admin: 01/26/24 08:48 Dose: 100 mg Trazodone HCl (Trazodone Hcl 50 Mg Tablet) 50 mg PO BEDTIME MRX1 PRN PRN Reason: Insomnia Last Admin: 01/25/24 21:06 Dose: 50 mg Vitamin D (Cholecalciferol (Vitamin D3) 10 Mcg Tablet) 10 mcg PO DAILY DAIN Last Admin: 01/26/24 08:48 Dose: 10 mcg Allergies Allergies Allergy/AdvReac Type Severity Reaction Status Date / Time No Known Allergies Allergy Verified 01/15/24 15:36 Assessment & Plan Assessment & Plan (1) Mood disorder: Status: Acute Code(s): F39 - Unspecified mood [affective] disorder (2) PTSD (post-traumatic stress disorder): Status: Acute Code(s): F43.10 - Post-traumatic stress disorder, unspecified (3) Alcohol use disorder: Status: Acute Code(s): F10.90 - Alcohol use, unspecified, uncomplicated Plan 58 yo male, history of PTSD, mood disorder, alcohol use disorder, admitted in transfer from [facility] after a medical detox and admit for a possible aspiration pneumonia on 01/09/24. Plan: Continue medical regime Lexapro 5 mg a.m. Olanzapine 5 mg bid MVI, Folic Acid, Thiamine Lidocaine patch to knee Uric acid level 01/16. Addiction consult-?Vivitrol 01/17- Continue tx. ?increase of Olanzapine 01/18. 01/18- Increase Olanzapine to 10 mg bid Lamictal 25 mg HS 01/21/24: Continue tapering of Lorazepam Pt considering a program post discharge 01/21: continue current tx plan. 01/22: continue tx plan. 01/26/24 ongoing anxiety and si - , will try propranlol prn for anxiety Patient educated on: medication risk/benefits Informed Consent: understands Reason for continued inpatient stay Substantial Risk for: harm to self and rapid decompensation Time Spent With Patient Time: Total time managing care of this patient today ____ minutes.
[2024-01-26] MEDS: hydrOXYzine HCL 25 MG TABLET PO ×2 (12:02→18:07)
[2024-01-26 18:00] VITALS: BP 152/88; PULSE 102; RESP 18; O2SAT 98
[2024-01-26] MEDS: Propranolol HCL 20 MG TABLET PO (18:07)
[2024-01-26] MEDS: lamoTRIgine 25 MG TABLET PO (20:27)
[2024-01-27] MEDS: gemfibroziL 600 MG TABLET PO ×2 (07:09→15:59)
[2024-01-27 08:09] VITALS: BP 153/74; PULSE 88; RESP 16; TEMP 36.3; O2SAT 98
[2024-01-27] MEDS: Escitalopram Oxalate 5 MG TABLET PO (08:34)
[2024-01-27] MEDS: Cholecalciferol (Vitamin D3) 10 MCG TABLET PO (08:34)
[2024-01-27] MEDS: Pyridoxine HCl (Vitamin B6) 50 MG TABLET PO (08:34)
[2024-01-27] MEDS: Thiamine HCL 100 MG TABLET PO (08:35)
[2024-01-27] MEDS: OLANZapine 10 MG TABLET PO ×2 (08:35→20:10)
[2024-01-27] MEDS: LORazepam 0.5 MG TABLET PO ×2 (08:35→20:10)
[2024-01-27] MEDS: Folic Acid 1 MG TABLET PO (08:35)
[2024-01-27] MEDS: Multivitamin TABLET 1 TAB PO (08:35)
[2024-01-27] MEDS: Lidocaine 4 % Patch ADH..PATCH 1 PATCH TRANSDERMA (08:39)
[2024-01-27] MEDS: Nicotine Polacrilex Lozenge 2 MG LOZENGE BUCCAL ×4 (09:45→18:55)
--- NOTE | 2024-01-27 16:21 | HO.PSYCHPN ---
Subjective Subjective Date of Service: 01/27/24 Reason For Visit: Depression, SI, alcohol withdrawal Subjective Notes: Conditional Voluntary Healthcare Proxy: No Guardianship: No Medical Problems Affecting Mental Status: No Interim History: I have not felt this good in a long time. No panic today. The new med is good. I could live sober feeling like this. Pt reports feeling well, appears well. Denies SI, HI, AH, VH, Paranoia Interactive with peers, room-mate, tolerating regime and looking ahead to treatment with some increase in hope. Lorazepam taper continues. Propranolol very helpful. Medication Compliance: Yes Side effects from medications: No Attending Groups: No Review of Systems Acute medical concerns: No Medical Review of Systems: unchanged Review of Systems Review of Systems Yes all other systems are reviewed and are negative (denies today) Mental Status Exam Mental Status Exam Patient Appearance: Appropriate Patient Orientation: Person, Place, Time and Situation Level of Consciousness: Alert Patient Behavior: Appropriate, Talkative, Cooperative and Good Eye Contact Mood Description: Calm Affect Description: Calm Patient Cognition Impaired: No Ability to Follow Directions: Good Speech Pattern: Spontaneous Speech Memory Description: Intact Hallucinations: None Delusions: Not Present Thought Process: Intact Thought Content: positive for Intact, positive for Suicidal Ideation (denies) and positive for Homicidal Ideation (denies) Depressive Symptoms: Low Self Esteem Judgement: Good Diagnostics Vital Signs (24Hr): Vital Signs - 24 hr 01/26/24 18:00 01/27/24 08:09 Temperature 97.4 F Pulse Rate 102 H 88 Respiratory Rate 18 16 Blood Pressure 152/88 H 153/74 H Pulse Oximetry 98 98 Oxygen Delivery Method Room Air Room Air BMI result Body Mass Index 26.9 Medications Medications Current Medications Acetaminophen (Acetaminophen 325 Mg Tablet) 650 mg PO Q6H PRN PRN Reason: Headache/Pain Mild Scale (1-3) Last Admin: 01/25/24 17:26 Dose: 650 mg Al Hydroxide/Mg Hydroxide (Magnesium Hydrox/Alum Hydrox 30 Ml Oral.Susp) 30 ml PO Q6H PRN PRN Reason: Heartburn/Nausea Last Admin: 01/19/24 14:47 Dose: 30 ml Ergocalciferol (Ergocalciferol (Vitamin D2) 1,250 Mcg Capsule) 1,250 mcg PO Mo@0900 DAIN Last Admin: 01/26/24 08:48 Dose: 1,250 mcg Escitalopram Oxalate (Escitalopram Oxalate 5 Mg Tablet) 5 mg PO DAILY [facility] Last Admin: 01/27/24 08:34 Dose: 5 mg Folic Acid (Folic Acid 1 Mg Tablet) 1 mg PO DAILY [facility] Last Admin: 01/27/24 08:35 Dose: 1 mg Gemfibrozil (Gemfibrozil 600 Mg Tablet) 600 mg PO BIDAC [facility] Last Admin: 01/27/24 15:59 Dose: 600 mg Hydroxyzine HCl (Hydroxyzine Hcl 25 Mg Tablet) 25 mg PO Q6H PRN PRN Reason: Anxiety Last Admin: 01/26/24 18:07 Dose: 25 mg Lamotrigine (Lamotrigine 25 Mg Tablet) 25 mg PO BEDTIME DAIN Last Admin: 01/26/24 20:27 Dose: 25 mg Lidocaine (Lidocaine 4 % Patch Adh..Patch) 1 patch TRANSDERMA DAILY [facility]; Protocol Last Admin: 01/27/24 08:39 Dose: 1 patch Lidocaine (Lidocaine 4 % Patch Adh..Patch) 1 patch TRANSDERMA DAILY [facility]; Protocol Last Admin: 01/27/24 08:40 Dose: Not Given Lorazepam (Lorazepam 0.5 Mg Tablet) 0.5 mg PO BEDTIME DAIN Stop: 01/30/24 20:59 Last Admin: 01/26/24 20:27 Dose: 0.5 mg Lorazepam (Lorazepam 0.5 Mg Tablet) 0.5 mg PO BID DAIN Stop: 01/28/24 08:59 Last Admin: 01/27/24 08:35 Dose: 0.5 mg Magnesium Hydroxide (Milk Of Magnesia 30 Ml Oral.Susp) 30 ml PO DAILY PRN PRN Reason: Constipation Multivitamins/Vitamin C (Multivitamin Tablet) 1 tab PO DAILY [facility] Last Admin: 01/27/24 08:35 Dose: 1 tab Nicotine Polacrilex (Nicotine Polacrilex Lozenge 2 Mg Lozenge) 2 mg BUCCAL Q2H PRN PRN Reason: Nicotine Cravings Last Admin: 01/27/24 16:00 Dose: 2 mg Olanzapine (Olanzapine 10 Mg Tablet) 10 mg PO BID [facility] Last Admin: 01/27/24 08:35 Dose: 10 mg Propranolol HCl (Propranolol Hcl 20 Mg Tablet) 20 mg PO TID PRN; Protocol PRN Reason: panic Last Admin: 01/26/24 18:07 Dose: 20 mg Pyridoxine HCl (Pyridoxine Hcl (Vitamin B6) 50 Mg Tablet) 50 mg PO DAILY [facility] Last Admin: 01/27/24 08:34 Dose: 50 mg Thiamine HCl (Thiamine Hcl 100 Mg Tablet) 100 mg PO DAILY [facility] Last Admin: 01/27/24 08:35 Dose: 100 mg Trazodone HCl (Trazodone Hcl 50 Mg Tablet) 50 mg PO BEDTIME MRX1 PRN PRN Reason: Insomnia Last Admin: 01/25/24 21:06 Dose: 50 mg Vitamin D (Cholecalciferol (Vitamin D3) 10 Mcg Tablet) 10 mcg PO DAILY [facility] Last Admin: 01/27/24 08:34 Dose: 10 mcg Allergies Allergies Allergy/AdvReac Type Severity Reaction Status Date / Time No Known Allergies Allergy Verified 01/15/24 15:36 Assessment & Plan Assessment & Plan (1) Mood disorder: Status: Acute Code(s): F39 - Unspecified mood [affective] disorder (2) PTSD (post-traumatic stress disorder): Status: Acute Code(s): F43.10 - Post-traumatic stress disorder, unspecified (3) Alcohol use disorder: Status: Acute Code(s): F10.90 - Alcohol use, unspecified, uncomplicated Plan 58 yo male, history of PTSD, mood disorder, alcohol use disorder, admitted in transfer from [facility] after a medical detox and admit for a possible aspiration pneumonia on 01/09/24. Plan: Continue medical regime Lexapro 5 mg a.m. Olanzapine 5 mg bid MVI, Folic Acid, Thiamine Lidocaine patch to knee Uric acid level 01/16. Addiction consult-?Vivitrol 01/17- Continue tx. ?increase of Olanzapine 01/18. 01/18- Increase Olanzapine to 10 mg bid Lamictal 25 mg HS 01/21/24: Continue tapering of Lorazepam Pt considering a program post discharge 01/21: continue current tx plan. 01/22: continue tx plan. 01/23: continue tx plan 01/27/24: Continue current regime and plan. Informed Consent: understands Reason for continued inpatient stay Substantial Risk for: rapid decompensation Time Spent With Patient Time: Total time managing care of this patient today ____ minutes.
[2024-01-27 17:40] VITALS: BP 163/90; PULSE 90; RESP 18; TEMP 36.5; O2SAT 98
[2024-01-27 17:45] VITALS: BP 163/90; PULSE 90
[2024-01-27] MEDS: Propranolol HCL 20 MG TABLET PO (17:45)
[2024-01-27 18:56] VITALS: BP 152/83; PULSE 76
[2024-01-27] MEDS: lamoTRIgine 25 MG TABLET PO (20:10)
[2024-01-28] MEDS: gemfibroziL 600 MG TABLET PO ×2 (06:33→18:01)
[2024-01-28 08:00] VITALS: BP 158/89; PULSE 81; RESP 16; TEMP 36.9; O2SAT 96
[2024-01-28] MEDS: Lidocaine 4 % Patch ADH..PATCH 1 PATCH TRANSDERMA ×2 (09:13→09:14)
[2024-01-28] MEDS: Nicotine Polacrilex Lozenge 2 MG LOZENGE BUCCAL ×3 (09:14→18:01)
[2024-01-28] MEDS: Pyridoxine HCl (Vitamin B6) 50 MG TABLET PO (09:14)
[2024-01-28] MEDS: Propranolol HCL 20 MG TABLET PO ×2 (09:14→13:27)
[2024-01-28] MEDS: OLANZapine 10 MG TABLET PO ×2 (09:14→21:47)
[2024-01-28] MEDS: Cholecalciferol (Vitamin D3) 10 MCG TABLET PO (09:14)
[2024-01-28] MEDS: hydrOXYzine HCL 25 MG TABLET PO ×3 (09:14→21:47)
[2024-01-28] MEDS: Folic Acid 1 MG TABLET PO (09:14)
[2024-01-28] MEDS: Escitalopram Oxalate 5 MG TABLET PO (09:14)
[2024-01-28] MEDS: Thiamine HCL 100 MG TABLET PO (09:14)
[2024-01-28] MEDS: Multivitamin TABLET 1 TAB PO (09:15)
[2024-01-28] MEDS: Acetaminophen 325 MG TABLET 650 MG PO ×2 (09:15→15:12)
--- NOTE | 2024-01-28 13:15 | HO.PSYCHPN ---
Subjective Subjective Date of Service: 01/28/24 Reason For Visit: Depression, SI, alcohol withdrawal Subjective Notes: Conditional Voluntary Healthcare Proxy: No Guardianship: No Medical Problems Affecting Mental Status: No Interim History: Reports gout pain, Indocin tid x 48 hours which pt agrees with. Plans discharge for 01/28 to [facility]. Apprehensive, expresses gratitude to team for their work with him Overall states he is feeling better with some hope that he can continue to feel improved and stronger with sobriety, yet is cautious. Encouraged to utilize the program resources for support. Medication Compliance: Yes Side effects from medications: No Attending Groups: No Review of Systems Acute medical concerns: No Review of Systems Review of Systems Reports gout sx. Mental Status Exam Mental Status Exam Patient Appearance: Appropriate Patient Orientation: Person, Place, Time and Situation Level of Consciousness: Alert Patient Behavior: Appropriate, Talkative, Cooperative and Good Eye Contact Mood Description: Calm Affect Description: Calm Patient Cognition Impaired: No Ability to Follow Directions: Good Speech Pattern: Spontaneous Speech Memory Description: Intact Hallucinations: None Delusions: Not Present Thought Process: Intact Thought Content: positive for Intact, positive for Suicidal Ideation (denies) and positive for Homicidal Ideation (denies) Depressive Symptoms: Low Self Esteem Judgement: Good Diagnostics Vital Signs (24Hr): Vital Signs - 24 hr 01/27/24 17:40 01/27/24 17:45 01/27/24 18:56 Temperature 97.7 F Pulse Rate 90 90 76 Respiratory Rate 18 Blood Pressure 163/90 H 163/90 H 152/83 H Pulse Oximetry 98 Oxygen Delivery Method Room Air 01/28/24 08:00 Temperature 98.4 F Pulse Rate 81 Respiratory Rate 16 Blood Pressure 158/89 H Pulse Oximetry 96 Oxygen Delivery Method Room Air BMI result Body Mass Index 26.9 Medications Medications Current Medications Acetaminophen (Acetaminophen 325 Mg Tablet) 650 mg PO Q6H PRN PRN Reason: Headache/Pain Mild Scale (1-3) Last Admin: 01/28/24 09:15 Dose: 650 mg Al Hydroxide/Mg Hydroxide (Magnesium Hydrox/Alum Hydrox 30 Ml Oral.Susp) 30 ml PO Q6H PRN PRN Reason: Heartburn/Nausea Last Admin: 01/19/24 14:47 Dose: 30 ml Ergocalciferol (Ergocalciferol (Vitamin D2) 1,250 Mcg Capsule) 1,250 mcg PO Mo@0900 [facility] Last Admin: 01/26/24 08:48 Dose: 1,250 mcg Escitalopram Oxalate (Escitalopram Oxalate 5 Mg Tablet) 5 mg PO DAILY [facility] Last Admin: 01/28/24 09:14 Dose: 5 mg Folic Acid (Folic Acid 1 Mg Tablet) 1 mg PO DAILY DAIN Last Admin: 01/28/24 09:14 Dose: 1 mg Gemfibrozil (Gemfibrozil 600 Mg Tablet) 600 mg PO BIDAC [facility] Last Admin: 01/28/24 06:33 Dose: 600 mg Hydroxyzine HCl (Hydroxyzine Hcl 25 Mg Tablet) 25 mg PO Q6H PRN PRN Reason: Anxiety Last Admin: 01/28/24 09:14 Dose: 25 mg Indomethacin (Indomethacin 25 Mg Capsule) 50 mg PO TIDWM [facility] Lamotrigine (Lamotrigine 25 Mg Tablet) 25 mg PO BEDTIME DAIN Last Admin: 01/27/24 20:10 Dose: 25 mg Lidocaine (Lidocaine 4 % Patch Adh..Patch) 1 patch TRANSDERMA DAILY [facility]; Protocol Last Admin: 01/28/24 09:13 Dose: 1 patch Lidocaine (Lidocaine 4 % Patch Adh..Patch) 1 patch TRANSDERMA DAILY [facility]; Protocol Last Admin: 01/28/24 09:14 Dose: 1 patch Lorazepam (Lorazepam 0.5 Mg Tablet) 0.5 mg PO BEDTIME DAIN Stop: 01/30/24 20:59 Last Admin: 01/26/24 20:27 Dose: 0.5 mg Magnesium Hydroxide (Milk Of Magnesia 30 Ml Oral.Susp) 30 ml PO DAILY PRN PRN Reason: Constipation Multivitamins/Vitamin C (Multivitamin Tablet) 1 tab PO DAILY [facility] Last Admin: 01/28/24 09:15 Dose: 1 tab Nicotine Polacrilex (Nicotine Polacrilex Lozenge 2 Mg Lozenge) 2 mg BUCCAL Q2H PRN PRN Reason: Nicotine Cravings Last Admin: 01/28/24 09:14 Dose: 2 mg Olanzapine (Olanzapine 10 Mg Tablet) 10 mg PO BID [facility] Last Admin: 01/28/24 09:14 Dose: 10 mg Propranolol HCl (Propranolol Hcl 20 Mg Tablet) 20 mg PO TID PRN; Protocol PRN Reason: panic Last Admin: 01/28/24 09:14 Dose: 20 mg Pyridoxine HCl (Pyridoxine Hcl (Vitamin B6) 50 Mg Tablet) 50 mg PO DAILY [facility] Last Admin: 01/28/24 09:14 Dose: 50 mg Thiamine HCl (Thiamine Hcl 100 Mg Tablet) 100 mg PO DAILY [facility] Last Admin: 01/28/24 09:14 Dose: 100 mg Trazodone HCl (Trazodone Hcl 50 Mg Tablet) 50 mg PO BEDTIME MRX1 PRN PRN Reason: Insomnia Last Admin: 01/25/24 21:06 Dose: 50 mg Vitamin D (Cholecalciferol (Vitamin D3) 10 Mcg Tablet) 10 mcg PO DAILY [facility] Last Admin: 01/28/24 09:14 Dose: 10 mcg Allergies Allergies Allergy/AdvReac Type Severity Reaction Status Date / Time No Known Allergies Allergy Verified 01/15/24 15:36 Assessment & Plan Assessment & Plan (1) Mood disorder: Status: Acute Code(s): F39 - Unspecified mood [affective] disorder (2) PTSD (post-traumatic stress disorder): Status: Acute Code(s): F43.10 - Post-traumatic stress disorder, unspecified (3) Alcohol use disorder: Status: Acute Code(s): F10.90 - Alcohol use, unspecified, uncomplicated Plan 58 yo male, history of PTSD, mood disorder, alcohol use disorder, admitted in transfer from [facility] after a medical detox and admit for a possible aspiration pneumonia on 01/09/24. Plan: Continue medical regime Lexapro 5 mg a.m. Olanzapine 5 mg bid MVI, Folic Acid, Thiamine Lidocaine patch to knee Uric acid level 01/16. Addiction consult-?Vivitrol 01/17- Continue tx. ?increase of Olanzapine 01/18. 01/18- Increase Olanzapine to 10 mg bid Lamictal 25 mg HS 01/21/24: Continue tapering of Lorazepam Pt considering a program post discharge 01/21: continue current tx plan. 01/22: continue tx plan. 01/23: continue tx plan 01/27/24: Continue current regime and plan. 01/28/24 Indocin 50 mg tid x 2 days for gout sx. Discharge to [facility] on 01/29/24 Patient educated on: therapeutic strategies Informed Consent: understands Reason for continued inpatient stay Substantial Risk for: rapid decompensation and med/psych decompensation Time Spent With Patient Time: Total time managing care of this patient today ____ minutes.
[2024-01-28] MEDS: Indomethacin 25 MG CAPSULE 50 MG PO ×2 (15:11→18:12)
[2024-01-28 20:00] VITALS: BP 164/94; PULSE 58; RESP 17; TEMP 36.1; O2SAT 96
[2024-01-28] MEDS: lamoTRIgine 25 MG TABLET PO (21:44)
[2024-01-28] MEDS: LORazepam 0.5 MG TABLET PO (22:08)
[2024-01-29 08:00] VITALS: BP 159/79; PULSE 63; RESP 18; TEMP 36.8; O2SAT 98
[2024-01-29] MEDS: Lidocaine 4 % Patch ADH..PATCH 1 PATCH TRANSDERMA (08:13)
[2024-01-29] MEDS: Indomethacin 25 MG CAPSULE 50 MG PO (08:15)
[2024-01-29] MEDS: Cholecalciferol (Vitamin D3) 10 MCG TABLET PO (08:15)
[2024-01-29] MEDS: Pyridoxine HCl (Vitamin B6) 50 MG TABLET PO (08:15)
[2024-01-29] MEDS: Thiamine HCL 100 MG TABLET PO (08:15)
[2024-01-29] MEDS: Escitalopram Oxalate 5 MG TABLET PO (08:15)
[2024-01-29] MEDS: Multivitamin TABLET 1 TAB PO (08:15)
[2024-01-29] MEDS: OLANZapine 10 MG TABLET PO (08:16)
[2024-01-29] MEDS: gemfibroziL 600 MG TABLET PO (08:16)
[2024-01-29] MEDS: Folic Acid 1 MG TABLET PO (08:16)
[2024-01-29] MEDS: Nicotine Polacrilex Lozenge 2 MG LOZENGE BUCCAL (10:12)
--- NOTE | 2024-01-29 17:33 | PM.PSYDC ---
DS: Providers Provider Date of Service: 01/29/24 Date of admission: 01/15/24 18:41 Date of discharge: 01/29/24 Primary care physician: Unknown Physician Admitting clinician: Erika Gómez Attending physician on admission: Matt Mcrae Consults: 01/15/24 22:41 Addiction Medicine Routine Consulting Provider: Addiction Covering Reason for consultation: Pt reports daily Etoh 7-9 drinks 01/16/24 03:15 Consult to Hospitalist Routine Comment: Consulting Provider: Hospitalist Reason For Exam: transfer from outside facility 01/16/24 16:17 Addiction Medicine Routine Consulting Provider: Addiction Covering Reason for consultation: ? Vivitrol pt, early sobriety-40 years + of drinking Has provider been notified: No Attending physician on discharge: Matt Mcrae Discharging clinician: Erika Gómez DS: Diagnosis Discharge Diagnosis (1) Mood disorder: Status: Acute (2) PTSD (post-traumatic stress disorder): Status: Acute (3) Alcohol use disorder: Status: Acute DS: Medications Discharge Medications Home Medications: Previous Rx's ?Medication ?Instructions ?Recorded cholecalciferol (vitamin D3) 10 10 mcg PO DAILY #30 tabs 01/28/24 mcg (400 unit) tablet (Vitamin D3) ergocalciferol (vitamin D2) 1,250 1,250 mcg PO Mo@0900 #4 caps 01/28/24 mcg (50,000 unit) capsule (Vitamin D2) escitalopram oxalate 5 mg tablet 5 mg PO DAILY #30 tabs 01/28/24 folic acid 1 mg tablet 1 mg PO DAILY #30 tabs 01/28/24 indomethacin 25 mg capsule 50 mg (2 x 25 mg) PO TIDWM #6 caps 01/28/24 lamotrigine 25 mg tablet 25 mg PO BEDTIME #30 tabs 01/28/24 lidocaine 4 % topical patch 1 patch transdermal DAILY #30 ea 01/28/24 (Lidocaine Pain Relief) lorazepam 0.5 mg tablet 0.5 mg PO BEDTIME #2 tabs 01/28/24 multivitamin (Daily-Titus tablet) 1 tab PO DAILY #30 tabs 01/28/24 nicotine (polacrilex) 2 mg buccal 2 mg buccal Q2H PRN Nicotine 01/28/24 lozenge Cravings #60 ea olanzapine 10 mg tablet 10 mg PO BID #60 tabs 01/28/24 propranolol 20 mg tablet 20 mg PO TID PRN panic #60 tabs 01/28/24 pyridoxine (vitamin B6) 50 mg 50 mg PO DAILY #30 tabs 01/28/24 tablet thiamine mononitrate (vit B1) 100 100 mg PO DAILY #30 tabs 01/28/24 mg tablet trazodone 50 mg tablet 50 mg PO BEDTIME MRX1 PRN Insomnia 01/28/24 #30 tabs cholecalciferol (vitamin D3) 10 10 mcg PO DAILY #30 caps 01/29/24 mcg (400 unit) capsule (Vitamin D3) gemfibrozil 600 mg tablet 600 mg PO BID #60 tabs 01/29/24 Mental Status Exam Mental Status Exam Patient Appearance: Appropriate Patient Orientation: Person, Place, Time and Situation Level of Consciousness: Alert Patient Behavior: Appropriate, Talkative, Cooperative and Good Eye Contact Mood Description: Calm Affect Description: Calm Patient Cognition Impaired: No Ability to Follow Directions: Good Speech Pattern: Spontaneous Speech Memory Description: Intact Hallucinations: None Delusions: Not Present Thought Process: Intact Thought Content: positive for Intact, positive for Suicidal Ideation (denies) and positive for Homicidal Ideation (denies) Depressive Symptoms: Low Self Esteem Judgement: Good DS: Summary Hospital Course Hospital Course: Admission to adult psychiatry for exacerbation of PTSD, Mood Disorder, Alcohol Use Disorder, Severe, Dependence. Medications were evaluated and adjusted. Aftercare planning was implemented. [facility] discharge. Time spent discussing smoking cessation with patient: 3 to 10 minutes Status at Discharge Functional status at discharge: independent ambulation Overall status at discharge: patient is progressing back to baseline Time Spent with Patient Time attestation: Total time managing care of this patient today ____ minutes. Time spent: Less than 30 minutes Discharge Plan Discharge Anticipated Discharge Date/Time: 01/29/24 10:00 Patient Disposition: Xfer Other Discharge Diagnosis: PTSD Mood Disorder Alcohol Use Disorder-Severe Referrals: [facility] [Other] - 01/29/24 1:30 pm (When patient arrives, please let them know to check in with security and indicate they are coming to [facility] and of our team members will come to greet patient.) Physician,Unknown J [Primary Care Provider] - 1 Week Discharge Medications: New multivitamin [Daily-Titus] Tablet 1 tab PO DAILY Qty: 30 0RF lidocaine [Lidocaine Pain Relief] 4 % Adhesive Patch,Medicated 1 patch transdermal DAILY Qty: 30 0RF Protocol: Apply to: Apply to: SHOULDER trazodone 50 mg Tablet 50 mg PO BEDTIME MRX1 PRN (Reason: Insomnia) Qty: 30 0RF olanzapine 10 mg Tablet 10 mg PO BID Qty: 60 0RF lamotrigine 25 mg Tablet 25 mg PO BEDTIME Qty: 30 0RF lorazepam 0.5 mg Tablet 0.5 mg PO BEDTIME Qty: 2 0RF indomethacin 25 mg Capsule 50 mg PO TIDWM Qty: 6 0RF pyridoxine (vitamin B6) 50 mg Tablet 50 mg PO DAILY Qty: 30 0RF folic acid 1 mg Tablet 1 mg PO DAILY Qty: 30 0RF ergocalciferol (vitamin D2) [Vitamin D2] 1,250 mcg (50,000 unit) Capsule 1,250 mcg PO Mo@0900 Qty: 4 0RF propranolol 20 mg Tablet 20 mg PO TID PRN (Reason: panic) Qty: 60 0RF Protocol: Hold for SBP/HR < HOLD for SBP < : 90 HOLD for HR < : 60 cholecalciferol (vitamin D3) [Vitamin D3] 10 mcg (400 unit) Tablet 10 mcg PO DAILY Qty: 30 0RF nicotine (polacrilex) 2 mg Lozenge 2 mg buccal Q2H PRN (Reason: Nicotine Cravings) Qty: 60 0RF escitalopram oxalate 5 mg Tablet 5 mg PO DAILY Qty: 30 0RF thiamine mononitrate (vit B1) 100 mg Tablet 100 mg PO DAILY Qty: 30 0RF cholecalciferol (vitamin D3) [Vitamin D3] 10 mcg (400 unit) capsule 10 mcg PO DAILY Qty: 30 0RF gemfibrozil 600 mg tablet 600 mg PO BID Qty: 60 0RF Discharge Orders: Discharge Order (Routine); Ordered 01/28/24 Ordered By: Erika Gómez Diet: Advance to usual diet Activity on Discharge: As tolerated Stand Alone Forms: Patient Portal Discharge page, Community Support Print Language: Lithuanian Care Plan Goals: Mood and Behavioral Stabilization Work on Sobriety Health Concerns: Mood and Behavioral Stabilization Work on Sobriety Plan of Treatment: Take medications as directed Attend [facility] program Work on Sobriety Assessment: Pt interviewed prior to discharge and found to be fully oriented and without SI/HI. Pt has insight and demonstrates good judgment in terms of wanting to pursue treatment. Pt is not in imminent risk of harm to self or others and has a safety plan that includes presenting to the closest ER or calling 911 if feeling unsafe. Pt has been observed closely by nursing and unit staff throughout admission. Pt has not engaged in any behaviors that suggest dangerousness to self or others and has demonstrated appropriate behaviors and impulse control. Discharge Date/Time: 01/29/24 11:30
== END 2024-01-29 11:30 | disposition other institution (70) | DRG 753 ==
PROVIDERS: Admitting Provider Clinical Nurse Specialist Psychiatric/Mental Health, Adult; Visit Provider Clinical Nurse Specialist Psychiatric/Mental Health, Adult
DX: F39 Unspecified mood [affective] disorder (principal); R45.851 Suicidal ideations; F43.10 Post-traumatic stress disorder, unspecified; M10.9 Gout, unspecified; F10.20 Alcohol dependence, uncomplicated; G89.29 Other chronic pain; Z59.02 Unsheltered homelessness; Z87.891 Personal history of nicotine dependence; Z79.899 Other long term (current) drug therapy
CPT/HCPCS: 36415; 80061; 82607; 82746; 83036; 83735; 84439; 84443; 84550; 93005

== ENCOUNTER → 2024-01-15 18:41 | Outpatient (BNV) | payer OTHER, SELFPAY | PROVIDERS: Admitting Provider Clinical Nurse Specialist Psychiatric/Mental Health, Adult; Visit Provider Student in an Organized Health Care Education/Training Program | DX: Z00.8 Encounter for other general examination (principal) | CPT/HCPCS: 99499 ==

== ENCOUNTER → 2024-01-15 | Outpatient (BNV) | payer OTHER, SELFPAY | PROVIDERS: Admitting Provider Clinical Nurse Specialist Psychiatric/Mental Health, Adult; Visit Provider Clinical Nurse Specialist Psychiatric/Mental Health, Adult | DX: F39 Unspecified mood [affective] disorder (principal); F43.11 Post-traumatic stress disorder, acute; F10.90 Alcohol use, unspecified, uncomplicated | CPT/HCPCS: 99231; 99232; 99499 ==